=== PATIENT | male | born 1945 | race Caucasian/White ===

== ENCOUNTER 2016-11-10 12:01 | Inpatient (IN) | payer MEDICARE, OTHER ==
[~2016-11-10] VITALS: Ht 188 cm; Wt 81.2 kg
[~2016-11-10 12:01] MED LIST: AMLO5TAB4 PO; ATOR40TA PO; CLOP75TA2 PO; FLUT16SP NS; GABA-534 PO; HYDR-548 PO; LACT10SO6 PO; LAMO25TA PO; LOPE2TAB25 PO; POLY17PO4 PO; PROC10TA PO; RANI150T8 PO; TAMS0.4C34 PO; TRAZ-147 PO; VALS80TA26 PO; VENL150T PO
--- NOTE | 2016-11-10 12:02 | NUR ---
[id number] FROM DR SOTO'S OFFICE: WITNESSED SYNCOPE. BS FIELD 117. PLACED ON MONITOR. VSS. PT HAS RFA #18 IV ACCESS LOAN COLLECTOR.
[2016-11-10] MEDS ORDERED: IV NS 0.9% 500 ML BAG IV ONE (12:30)
[2016-11-10 12:40] LABS: BASOPHILS % (AUTO) 0.6 % (0.0-2.0); EOSINOPHILS # (AUTO) 0.2 /CMM (0.0-0.7); EOSINOPHILS % (AUTO) 2.5 % (0.0-6.0); HEMATOCRIT 31 % (39-51); HEMOGLOBIN 10.3 g/dL (13.5-17.5); LYMPHOCYTES # (AUTO) 2.9 /CMM (0.8-4.8); LYMPHOCYTES % (AUTO) 34.9 % (20.0-44.0); MEAN CORPUSCULAR HEMOGLOBIN 27 PG (26.0-33.0); MEAN CORPUSCULAR HGB CONC 33 g/dl (31.0-36.0); MEAN CORPUSCULAR VOLUME 82 fL (80-96); MONOCYTES # (AUTO) 0.6 /CMM (0.1-1.30); MONOCYTES % (AUTO) 6.8 % (2.0-12.0); NEUTROPHILS # (AUTO) 4.6 /CMM (1.8-8.9); NEUTROPHILS % (AUTO) 55.2 % (43.0-81.0); PLATELET COUNT (AUTO) 297 /CMM (150-450); RDW COEFFICIENT OF VARIATION 17.1 (11.5-15.0); WHITE BLOOD COUNT (AUTO) 8.3 K/uL (4.3-11.0)
[2016-11-10 12:50] LABS: CALCIUM, SERUM 8.8 mg/dL (8.5-10.1); CARBON DIOXIDE 27 mmol/L (21-32); CHLORIDE 91 mmol/L (98-107); CREATININE 0.6 mg/dL (0.6-1.3); GLUCOSE 100 mg/dL (74-106); POTASSIUM 3.6 mmol/L (3.5-5.1); SODIUM SERUM 125 mmol/L (136-145); UREA NITROGEN, BLOOD 11 mg/dL (7-18)
[2016-11-10 12:54] LABS: INR 1.01 (0.87-1.13); PROTHROMBIN TIME 10.5 SECS (9.5-12.7)
[2016-11-10 12:59] LABS: TROPONIN I < 0.017 ng/mL (0.00-0.056)
[2016-11-10] MEDS ORDERED: IV NS 0.9% 500 ML IV ONE (13:06)
[2016-11-10] MEDS ORDERED: IV SET PRIMARY PUMP SET 1 EA INFUS.SET MC ONE ×2 (13:06→19:04)
[2016-11-10] MEDS ORDERED: ASPI81TA44 PO (13:12)
[2016-11-10] MEDS ORDERED: LACT10SO7 PO (13:12)
--- NOTE | 2016-11-10 13:19 | NUR ---
CALLED NURSING SUP. FOR TELE BED
--- NOTE | 2016-11-10 13:26 | NUR ---
EPIC PAGED, WOODS LABORER
--- NOTE | 2016-11-10 13:54 | NUR ---
DR CYR AT BEDSIDE
--- NOTE | 2016-11-10 14:08 | NUR ---
GAVE REPORT TO RYAN TELE [address] CYR ADMITTING, TRANSFER VIA ACLS PROTOCOL
[2016-11-10 14:30] VITALS: BP 140/87
--- NOTE | 2016-11-10 14:30 | NUR ---
RN NOTES ADMITTED A 71Y/O M FROM ER WITH DX OF SYNCOPE, TRANSPORTED VIA STRETCHER ACCOMPANIED BY RN AND TECH. PT IS AWAKE ALERT ORIENTED TO NAME AND PLACE. ABLE TO MAKE SIMPLE NEEDS KNOWN, ON RA SYED WELL. VS TAKEN AND RECORDED. TELEBOX ATTACHED, NSR. BODY CHECK DONE, NO MAJOR SKIN ISSUES NOTED. ORIENTED PT TO UNIT AND CALL LIGHT USE, SAFETY MAINTAINED, NEEDS ATTENDED. CALL LIGHT WITHIN REACH, WILL CONT TO MONITOR
[2016-11-10 16:00] VITALS: BP 139/87
[2016-11-10] MEDS ORDERED: ONDANSETRON HCL/PF 4 MG/2 ML VIAL IVP PRN (17:00)
[2016-11-10] MEDS ORDERED: ZOLPIDEM TARTRATE 5 MG TABLET PO PRN (17:00)
[2016-11-10] MEDS ORDERED: MAG HYDROX/AL HYDROX/SIMETH 30 ML UDC PO PRN (17:00)
[2016-11-10] MEDS ORDERED: MAGNESIUM HYDROXIDE 30 ML UDC PO PRN (17:00)
[2016-11-10] MEDS ORDERED: Z GUARD REMEDY 2 OZ OINT TP PRN (17:00)
[2016-11-10] MEDS ORDERED: HYDROCODONE/APAP 5/325MG 1 EACH TABLET PO PRN (17:00)
[2016-11-10] MEDS ORDERED: ACETAMINOPHEN 325 MG TABLET PO PRN (17:00)
[2016-11-10] MEDS: LamoTRIgine 25 MG TABLET PO SCH (17:36)
[2016-11-10] MEDS: GABAPENTIN 300 MG CAPSULE PO SCH (17:36)
[2016-11-10] MEDS: FLUTICASONE PROPIONATE 16 GM BOTTLE NS SCH (18:22)
[2016-11-10 20:00] VITALS: BP 100/57
--- NOTE | 2016-11-10 20:00 | NUR ---
EDUCATION OFFICER NOTE Pt. assessed at this time. No C/O pain or distress. Pt. oriented to room and nurse call estrella. VSS. Afebrile. Repositioned pt. to right lateral side lying for comfort with pillows. All needs attended to. Will continue to monitor.
[2016-11-10] MEDS: TRAZODONE 50 MG TABLET PO SCH (21:27)
[2016-11-10] MEDS: ATORVASTATIN 40 MG TABLET PO SCH (21:27)
[2016-11-10] MEDS: IV NS 0.9% 1,000 ML IV PRN (21:30)
--- NOTE | 2016-11-10 22:00 | NUR ---
Pt. on Tele- ST on the monitor. No SOB. Sat on room air is 95%. C/O bilateral leg pain of an 8/10 on the pain scale. [place] 5/325mg given per order. Will reassess in one hour per pain protocol. Pt. is on IVF's NS at 75ml/hr infusing well into the right AC 20g intact and patent. All due meds given. ALL needs attended to. Keep comfortable and safe. Bed alarm on at this time.
[2016-11-11] VITALS (7 sets, daily range): BP systolic 90–106; BP diastolic 50–57
--- NOTE | 2016-11-11 06:22 | NUR ---
chaperon Closing Note pt. remains in bed resting comfortably. No S/S of distress noted. VSS. No C/P pain. Tele monitor SR. All needs attended to. Will continue to monitor.
--- NOTE | 2016-11-11 07:00 | NUR ---
Pt. on Tele- ST on the monitor. No SOB. Sat on room air is 95%. NO C/O PAIN.Pt. is on IVF's NS at 75ml/hr infusing well into the right AC 20g intact and patent. All due meds given. ALL needs attended to. Keep comfortable and safe. Bed alarm on at this time.
[2016-11-11 07:15] LABS: BASOPHILS % (AUTO) 0.7 % (0.0-2.0); EOSINOPHILS # (AUTO) 0.2 /CMM (0.0-0.7); EOSINOPHILS % (AUTO) 2.9 % (0.0-6.0); HEMATOCRIT 29 % (39-51); HEMOGLOBIN 9.4 g/dL (13.5-17.5); LYMPHOCYTES # (AUTO) 2.5 /CMM (0.8-4.8); LYMPHOCYTES % (AUTO) 38.7 % (20.0-44.0); MEAN CORPUSCULAR HEMOGLOBIN 27 PG (26.0-33.0); MEAN CORPUSCULAR HGB CONC 32 g/dl (31.0-36.0); MEAN CORPUSCULAR VOLUME 82 fL (80-96); MONOCYTES # (AUTO) 0.6 /CMM (0.1-1.30); MONOCYTES % (AUTO) 9.5 % (2.0-12.0); NEUTROPHILS # (AUTO) 3.1 /CMM (1.8-8.9); NEUTROPHILS % (AUTO) 48.2 % (43.0-81.0); PLATELET COUNT (AUTO) 253 /CMM (150-450); RED BLOOD CELL COUNT(AUTO) 3.55 MIL/uL (4.5-6.0); WHITE BLOOD COUNT (AUTO) 6.4 K/uL (4.3-11.0)
[2016-11-11 07:40] LABS: CALCIUM, SERUM 8.5 mg/dL (8.5-10.1); CREATININE 0.6 mg/dL (0.6-1.3); MAGNESIUM 1.9 mg/dL (1.8-2.4); PHOSPHORUS 4.6 mg/dL (2.5-4.9)
[2016-11-11] MEDS: GABAPENTIN 300 MG CAPSULE PO SCH ×2 (09:13→17:10)
[2016-11-11] MEDS: CLOPIDOGREL BISULFATE 75 MG TABLET PO SCH (09:13)
[2016-11-11] MEDS: PANTOPRAZOLE 40 MG TABLET.DR PO SCH (09:13)
[2016-11-11] MEDS ORDERED: IV NS 0.9% 1,000 ML ONE (09:13)
[2016-11-11] MEDS: ASPIRIN EC 81 MG TABLET.DR PO SCH (09:13)
[2016-11-11] MEDS: TAMSULOSIN 0.4 MG CAP.SR.24H PO SCH (09:13)
[2016-11-11] MEDS: POLYETHYLENE GLYCOL 3350 17 GM POWD.PACK PO SCH (09:14)
[2016-11-11] MEDS: LamoTRIgine 25 MG TABLET PO SCH ×2 (09:17→17:10)
[2016-11-11] MEDS: IV NS 0.9% 1,000 ML IV PRN (09:20)
[2016-11-11] MEDS: FLUTICASONE PROPIONATE 16 GM BOTTLE NS SCH ×2 (09:20→17:12)
[2016-11-11] MEDS: VENLAFAXINE XR 150 MG CAP.SR.24H PO SCH (10:26)
--- NOTE | 2016-11-11 19:30 | NUR ---
REDUCTION FURNACE OPERATOR INITIAL NOTE PT RECEIVED IN BED RESTING. AWAKE AND ALERT X2-3 FORGETFUL AND ABLE TO MAKE SOME NEEDS KNOWN. ON ROOM AIR AND SATING WELL. IV SITE INTACT, PATENT, WITH FLUIDS RUNNING. ALL SAFETY MEASURES IN PLACE. CALL LIGHT WITHIN EASY REACH. WILL CONTINUE TO MONITOR.
[2016-11-11] MEDS: ATORVASTATIN 40 MG TABLET PO SCH (22:20)
[2016-11-11] MEDS: TRAZODONE 50 MG TABLET PO SCH (22:20)
[2016-11-12] VITALS: BP 118/75
[2016-11-12 04:00] VITALS: BP 114/68
[2016-11-12 04:56] VITALS: BP 114/68
[2016-11-12] MEDS: IV NS 0.9% 1,000 ML IV PRN ×2 (06:54→18:51)
[2016-11-12] MEDS: PANTOPRAZOLE 40 MG TABLET.DR PO SCH (06:57)
--- NOTE | 2016-11-12 07:12 | NUR ---
PHOTO SPECIALIST CLOSING NOTE PT REMAINED STABLE DURING SHIFT. NO ACUTE DISTRESS NOTED. CALL LIGHT WITHIN EASY REACH AT ALL TIMES. ALL NEEDS ATTENDED TO PROMPTLY. WILL ENDORSE TO NEXT SHIFT FOR BRENDA.
[2016-11-12 08:00] VITALS: BP 126/69
[2016-11-12] MEDS: ASPIRIN EC 81 MG TABLET.DR PO SCH (08:55)
[2016-11-12] MEDS: FLUTICASONE PROPIONATE 16 GM BOTTLE NS SCH ×2 (08:55→17:41)
[2016-11-12] MEDS: TAMSULOSIN 0.4 MG CAP.SR.24H PO SCH (08:56)
[2016-11-12] MEDS: LamoTRIgine 25 MG TABLET PO SCH ×2 (08:56→17:41)
[2016-11-12] MEDS: CLOPIDOGREL BISULFATE 75 MG TABLET PO SCH (08:56)
[2016-11-12] MEDS: VENLAFAXINE XR 150 MG CAP.SR.24H PO SCH (08:56)
[2016-11-12] MEDS: POLYETHYLENE GLYCOL 3350 17 GM POWD.PACK PO SCH (08:56)
[2016-11-12] MEDS: GABAPENTIN 300 MG CAPSULE PO SCH ×2 (08:56→17:41)
[2016-11-12] MEDS: MUPIROCIN OINT 2% 22 GM TUBE SCH ×2 (12:33→22:13)
[2016-11-12 15:41] LABS: CREATININE 0.6 mg/dL (0.6-1.3); POTASSIUM 3.8 mmol/L (3.5-5.1)
[2016-11-12 16:00] VITALS: BP 109/71
[2016-11-12] MEDS ORDERED: IV SET PRIMARY PUMP SET 1 EA INFUS.SET MC ONE (18:41)
[2016-11-12 20:00] VITALS: BP 105/63
[2016-11-12] MEDS: TRAZODONE 50 MG TABLET PO SCH (21:42)
[2016-11-12] MEDS: ATORVASTATIN 40 MG TABLET PO SCH (21:42)
--- NOTE | 2016-11-12 22:00 | NUR ---
RN NOTES: SPOKE TO ABIMAEL THOMAS ON THE PHONE RE PT; WITH ORDERS FOR DISCHARGE FOR PATIENT . PER ABIMAEL THOMAS PATIENT OK TO BE DISCHARGED IF FACILITY ACCEPTS HIM IF NOT TONIGHT TOMORROW IN AM. CALLED SNF: [facility] AND SPOKE TO DIRECTOR OF DEMENTIA OPERATIONS MILTON, PER HER PATIENT STILL HAS A BED ON HOLD FOR HIM AND WILL BE ACCEPTED BACK. PATIENT ASLEEP COMFORTABLY ON BED AT THIS TIME. TO SEND PATIENT BACK TO SNF IN AM.
[2016-11-13] VITALS: BP 98/60
[2016-11-13 04:00] VITALS: BP 98/68
--- NOTE | 2016-11-13 05:00 | NUR ---
RN NOTES GAVE DISCHARGE INSTRUCTIONS TO THE PT, VERBALIZED UNDERSTANDING. LEFT MESSAGE TO FAMILY MEMBER AND FACILITY, AWAITING FOR CALL BACK
[2016-11-13 06:47] LABS: BILIRUBIN,TOTAL 0.2 mg/dL (0.2-1.0); CALCIUM, SERUM 8.1 mg/dL (8.5-10.1); CREATININE 0.7 mg/dL (0.6-1.3); MAGNESIUM 1.8 mg/dL (1.8-2.4); PHOSPHORUS 4.4 mg/dL (2.5-4.9)
[2016-11-13 06:51] LABS: BASOPHILS # (AUTO) 0.1 /CMM (0.0-0.2); BASOPHILS % (AUTO) 0.9 % (0.0-2.0); EOSINOPHILS # (AUTO) 0.2 /CMM (0.0-0.7); EOSINOPHILS % (AUTO) 2.7 % (0.0-6.0); HEMATOCRIT 28 % (39-51); HEMOGLOBIN 9.2 g/dL (13.5-17.5); LYMPHOCYTES # (AUTO) 2.5 /CMM (0.8-4.8); LYMPHOCYTES % (AUTO) 39.8 % (20.0-44.0); MEAN CORPUSCULAR HEMOGLOBIN 27 PG (26.0-33.0); MEAN CORPUSCULAR HGB CONC 33 g/dl (31.0-36.0); MEAN CORPUSCULAR VOLUME 83 fL (80-96); MONOCYTES # (AUTO) 0.4 /CMM (0.1-1.30); MONOCYTES % (AUTO) 7.2 % (2.0-12.0); NEUTROPHILS # (AUTO) 3.1 /CMM (1.8-8.9); NEUTROPHILS % (AUTO) 49.4 % (43.0-81.0); PLATELET COUNT (AUTO) 246 /CMM (150-450); RDW COEFFICIENT OF VARIATION 17.9 (11.5-15.0); RED BLOOD CELL COUNT(AUTO) 3.42 MIL/uL (4.5-6.0); WHITE BLOOD COUNT (AUTO) 6.2 K/uL (4.3-11.0)
--- NOTE | 2016-11-13 07:00 | NUR ---
RN NOTES RECEIVED PT ON BED , AWAKE AND ALERT X2-3 , RESPIRATION EVEN AND UNLABORED, ON RA , NO SOB NOTED, R AC IV SITE PATENT, WITH NS RUNNING AT 75CC/HR , SR UP x3, CALL LIGHT WITHIN EASY REACH . AWAITING FOR AMBULANCE TO GO TO SNF , WILL CONTINUE TO MONITOR PT CLOSELY AND NOTIFY MD FOR ANY SIGNIFICANT CHANGES
--- NOTE | 2016-11-13 07:15 | NUR ---
RN NOTE CALLED [facility], SPOKE WITH TRAFFIC SURVEY TECHNICIAN/PROCESS CONSULTANT DELL, GAVE REPORT RE PT GOING BACK TO FACILITY VIA AMBULANCE
[2016-11-13 08:00] VITALS: BP 125/68
--- NOTE | 2016-11-13 09:30 | NUR ---
RN NOTES R WRIST AND R AC IV SITES D/WANDA, REPORT GIVEN TO EMT PERDACIA , PT SENA .
--- NOTE | 2016-11-13 09:43 | NUR ---
RN NOTES PT LEFT THE FLOOR TO BOARDING CARE VIA AMBIANCE IN STABLE CONDITION.
== END 2016-11-13 09:29 | DRG 312 ==
LOC: ER 12:02 → TELE1 14:18 → MEDSG1 11-13 04:18
PROVIDERS: ADMIT Internal Medicine; ATTEND Internal Medicine
DX: R55 Syncope and collapse (principal); I69.859 Hemiplegia and hemiparesis following other cerebrovascular disease affecting unspecified side; E87.1 Hypo-osmolality and hyponatremia; E87.79 Other fluid overload; E78.5 Hyperlipidemia, unspecified; K21.9 Gastro-esophageal reflux disease without esophagitis; N40.0 Benign prostatic hyperplasia without lower urinary tract symptoms; Z98.2 Presence of cerebrospinal fluid drainage device; F32.9 Major depressive disorder, single episode, unspecified; I25.10 Atherosclerotic heart disease of native coronary artery without angina pectoris; Z85.841 Personal history of malignant neoplasm of brain; I10 Essential (primary) hypertension
CPT/HCPCS: 36415; 70450-TC; 71010-TC; 80048-TC; 80053-TC; 80061-TC; 82962-TC; 83735-TC; 83935-TC; 84100-TC; 84484-TC; 85025-TC; 85730-TC; 87040-TC; 87081-TC; 93307-TC; 97001-TC; A4606; J7030; J7040; Z7610

== ENCOUNTER 2017-04-22 19:52 | Inpatient (IN) | payer MEDICARE, OTHER ==
[~2017-04-22] VITALS: Ht 188 cm; Wt 73.2 kg
[~2017-04-22 19:52] MED LIST changes: +ASPI81TA44 PO; -LACT10SO6 PO; +LACT10SO7 PO
--- NOTE | 2017-04-22 20:10 | NUR ---
TO BED 6 A 71 YO MALE BB CAREGIVER, PT C/O ABD PAIN AND CONSTIPATION. PER PATIENT, HE DOES NOT REMEMBER WHEN WAS HIS LAST BOWEL MOVEMENT. NAD NOTED, NONDIAPHORETIC, GOWNED. COMFORT MEASURES RENDERED. PLACED ON MONITOR AND CONT POX.
--- NOTE | 2017-04-22 20:31 | NUR ---
Dr Kinney at bedside to eval.
[2017-04-22] MEDS ORDERED: ONDANSETRON HCL/PF 4 MG/2 ML VIAL ONE (20:59)
[2017-04-22] MEDS ORDERED: IV NS 0.9% 1,000 ML BAG IV ONE (21:00)
[2017-04-22] MEDS ORDERED: ONDANSETRON HCL/PF 4 MG/2 ML VIAL IVP ONE (21:00)
[2017-04-22] MEDS ORDERED: MORPHINE SULFATE INJ 2 MG/ML DISP.SYRIN IV ONE (21:00)
[2017-04-22] MEDS ORDERED: MORPHINE SULFATE INJ 10 MG/ML DISP.SYRIN ONE (21:00)
--- NOTE | 2017-04-22 21:00 | NUR ---
started a saline lock on the lfa g20.
[2017-04-22 21:05] LABS: BASOPHILS # (AUTO) 0.1 /CMM (0.0-0.2); BASOPHILS % (AUTO) 0.4 % (0.0-2.0); EOSINOPHILS # (AUTO) 0.1 /CMM (0.0-0.7); EOSINOPHILS % (AUTO) 0.7 % (0.0-6.0); HEMATOCRIT 33 % (39-51); HEMOGLOBIN 10.6 g/dL (13.5-17.5); LYMPHOCYTES # (AUTO) 1.8 /CMM (0.8-4.8); LYMPHOCYTES % (AUTO) 12.5 % (20.0-44.0); MEAN CORPUSCULAR HEMOGLOBIN 28 PG (26.0-33.0); MEAN CORPUSCULAR HGB CONC 33 g/dl (31.0-36.0); MEAN CORPUSCULAR VOLUME 84 fL (80-96); MONOCYTES # (AUTO) 0.4 /CMM (0.1-1.30); MONOCYTES % (AUTO) 2.7 % (2.0-12.0); NEUTROPHILS # (AUTO) 11.7 /CMM (1.8-8.9); NEUTROPHILS % (AUTO) 83.7 % (43.0-81.0); PLATELET COUNT (AUTO) 298 /CMM (150-450); RDW COEFFICIENT OF VARIATION 16.5 (11.5-15.0); RED BLOOD CELL COUNT(AUTO) 3.87 MIL/uL (4.5-6.0); WHITE BLOOD COUNT (AUTO) 14.1 K/uL (4.3-11.0)
--- NOTE | 2017-04-22 21:08 | NUR ---
medicated patient as ordered by Dr Kinney.
[2017-04-22 21:16] LABS: CALCIUM, SERUM 8.8 mg/dL (8.5-10.1); CARBON DIOXIDE 24 mmol/L (21-32); CHLORIDE 100 mmol/L (98-107); CREATININE 0.7 mg/dL (0.6-1.3); GLUCOSE 152 mg/dL (74-106); SODIUM SERUM 133 mmol/L (136-145); UREA NITROGEN, BLOOD 14 mg/dL (7-18)
[2017-04-22 21:22] LABS: ALANINE AMINOTRANSFERASE 18 U/L (12-78); ALBUMIN 3.4 g/dL (3.4-5.0); ALKALINE PHOSPHATASE 107 U/L (46-116); ASPARTATE AMINOTRANSFERASE 16 U/L (15-37); BILIRUBIN,TOTAL 0.2 mg/dL (0.2-1.0); LIPASE 91 U/L (73-393)
[2017-04-22] MEDS ORDERED: IV NS 0.9% 250 ML IV ONE (21:43)
[2017-04-22] MEDS ORDERED: IOHEXOL-300 100 ML VIAL IV ONE (21:43)
--- NOTE | 2017-04-22 22:45 | NUR ---
Dr Kinney at bedside for digital disimpaction.
--- NOTE | 2017-04-22 22:58 | NUR ---
328-1 [facility] BED
[2017-04-22] MEDS ORDERED: PANTOPRAZOLE 40 MG VIAL ONE (23:00)
[2017-04-22] MEDS ORDERED: PANTOPRAZOLE 40 MG VIAL IV ONE (23:00)
--- NOTE | 2017-04-22 23:10 | NUR ---
Report given to Matias GALVEZ for rufus.
[2017-04-22 23:23] LABS: INR 0.96 (0.87-1.13)
[2017-04-23] VITALS (8 sets, daily range): BP systolic 117–138; BP diastolic 72–76
[2017-04-23] MEDS ORDERED: MAGNESIUM HYDROXIDE 30 ML UDC PO PRN
[2017-04-23] MEDS ORDERED: Z GUARD REMEDY 2 OZ OINT TP PRN
[2017-04-23] MEDS ORDERED: PROCHLORPERAZINE MALEATE 10 MG TABLET PO PRN
[2017-04-23] MEDS ORDERED: ZOLPIDEM TARTRATE 5 MG TABLET PO PRN
[2017-04-23] MEDS ORDERED: MAG HYDROX/AL HYDROX/SIMETH 30 ML UDC PO PRN
[2017-04-23] MEDS ORDERED: ONDANSETRON HCL/PF 4 MG/2 ML VIAL IVP PRN
--- NOTE | 2017-04-23 00:14 | NUR ---
patient transferred to tele floor 317-2 via als protocol, no incident noted.
--- NOTE | 2017-04-23 00:30 | NUR ---
Received pt from ED alert,oriented X 3. on room air, saturating well. connected to the workers' compensation claims examiner, NSR-ST. pt denies chest pain or distress.VSS. pt states that he had a history of suicidal attempts but denies any suicidal ideation at this time. charge nurse is aware. will continue to monitor and endorse it to AM shift nurse.
[2017-04-23] MEDS ORDERED: HYDROCODONE/APAP 10/325MG 1 EA TABLET ONE (04:28)
[2017-04-23] MEDS: HYDROCODONE/APAP 10/325MG 1 EA TABLET PO PRN (04:31)
--- NOTE | 2017-04-23 06:47 | NUR ---
END OF SHIFT SUMMERY: Pt is A&O X 4. on room air,saturating well. VSS. connected to the monitor worker , NSR-ST . complained of rectal pain, norco was given with relief. No episodes of N/V noticed throughout shift. Fall precautions are implemented. Pt is repositioned Q2h and as needed. Had two episodes of BM during the shift. MRSA swab is obtained and sent to lab. POC: monitor H/H, lab studies. No distress noted,no questions or concerns at this time. will endorse patient and POC to the next nurse to continue the care.
[2017-04-23 07:13] LABS: BASOPHILS % (AUTO) 0.2 % (0.0-2.0); EOSINOPHILS # (AUTO) 0.2 /CMM (0.0-0.7); EOSINOPHILS % (AUTO) 1.2 % (0.0-6.0); HEMATOCRIT 29 % (39-51); HEMOGLOBIN 9.4 g/dL (13.5-17.5); LYMPHOCYTES # (AUTO) 2.4 /CMM (0.8-4.8); LYMPHOCYTES % (AUTO) 18.9 % (20.0-44.0); MEAN CORPUSCULAR HEMOGLOBIN 28 PG (26.0-33.0); MEAN CORPUSCULAR HGB CONC 33 g/dl (31.0-36.0); MEAN CORPUSCULAR VOLUME 84 fL (80-96); MONOCYTES # (AUTO) 0.8 /CMM (0.1-1.30); NEUTROPHILS # (AUTO) 9.5 /CMM (1.8-8.9); NEUTROPHILS % (AUTO) 73.7 % (43.0-81.0); PLATELET COUNT (AUTO) 261 /CMM (150-450); RDW COEFFICIENT OF VARIATION 17.9 (11.5-15.0); RED BLOOD CELL COUNT(AUTO) 3.41 MIL/uL (4.5-6.0); WHITE BLOOD COUNT (AUTO) 12.9 K/uL (4.3-11.0)
[2017-04-23 07:35] LABS: CALCIUM, SERUM 8.5 mg/dL (8.5-10.1); CARBON DIOXIDE 24 mmol/L (21-32); CHLORIDE 102 mmol/L (98-107); CREATININE 0.5 mg/dL (0.6-1.3); GLUCOSE 85 mg/dL (74-106); MAGNESIUM 1.9 mg/dL (1.8-2.4); POTASSIUM 4.1 mmol/L (3.5-5.1); SODIUM SERUM 136 mmol/L (136-145); UREA NITROGEN, BLOOD 11 mg/dL (7-18)
[2017-04-23 07:36] LABS: CHOLESTEROL 104 mg/dL (<200); HDL CHOLESTEROL 63 mg/dL (40-60); LDL 34 mg/dL (0-99); TRIGLYCERIDES 63 mg/dL (30-150)
--- NOTE | 2017-04-23 08:00 | NUR ---
RN NOTES RECEIVED PT. PT IS STABLE AND RESTING IN BED. A/OX4. NO S/S OF DISTRESS OR SOB. PT HAS NO C/O PAIN AT THIS TIME. PT IS ON CONTACT ISOLATION FOR HX OF MRSA. PT HAS BEEN CONSTIPATED, NO BM FOR THE PAST 4 DAYS. IV ACCESS LOCATED ON LEFT FOREARM, 20G AND RIGHT AC 20G. SAFETY MEASURES IN PLACE, CALL LIGHT WITHIN REACH. WILL CONTINUE TO MONITOR.
[2017-04-23] MEDS ORDERED: ASPIRIN EC 81 MG TABLET.DR PO SCH (09:00)
[2017-04-23] MEDS: AMLODIPINE BESYLATE 5 MG TABLET PO SCH (09:00)
[2017-04-23] MEDS: VALSARTAN 80 MG TABLET PO SCH (09:00)
[2017-04-23] MEDS ORDERED: CLOPIDOGREL BISULFATE 75 MG TABLET PO SCH (09:00)
[2017-04-23] MEDS: FLUTICASONE PROPIONATE 16 GM BOTTLE NS SCH ×2 (09:14→18:01)
[2017-04-23] MEDS: GABAPENTIN 300 MG CAPSULE PO SCH ×2 (09:14→18:03)
[2017-04-23] MEDS: LamoTRIgine 25 MG TABLET PO SCH ×2 (09:15→18:03)
[2017-04-23] MEDS: TAMSULOSIN 0.4 MG CAP.SR.24H PO SCH (09:15)
[2017-04-23] MEDS: POLYETHYLENE GLYCOL 3350 17 GM POWD.PACK PO SCH (09:16)
[2017-04-23] MEDS ORDERED: LOPERAMIDE HCL (2 MG CAP) 2 MG CAPSULE PO PRN (11:00)
[2017-04-23] MEDS ORDERED: LACTULOSE 10 G/15 ML UDC (PYXIS) PO PRN (11:00)
[2017-04-23] MEDS ORDERED: PEG 3350/NA SULF,BICARB,CL/KCL 4,000 ML BOTTLE PO ONE (11:00)
[2017-04-23] MEDS: VENLAFAXINE XR 150 MG CAP.SR.24H PO SCH (12:14)
[2017-04-23 13:11] LABS: IRON, SERUM 37 ug/dl (50-175); TOTAL IRON BINDING CAPACITY 279 ug/dl (250-450)
[2017-04-23] MEDS: FAMOTIDINE (20 MG) 20 MG TABLET PO SCH (18:02)
--- NOTE | 2017-04-23 18:56 | NUR ---
RN CLOSING NOTES PT IS AWAKE AND RESTING IN BED. NO S/S OF DISTRESS OR SOB. NO C/O PAIN AT THIS TIME. PT HAS COMPLETED APPROXIMATELY 80% OF THE 4L ALEN. PT TELE WAS D/C. SAFETY MEASURES IN PLACE, CALL LIGHT WITHIN REACH. WILL ENDORSE TO COMPACTOR DRIVER FOR BRENDA.
--- NOTE | 2017-04-23 19:15 | NUR ---
RN OPEN NOTES RECEIVED PATIENT AWAKE IN BED. A/O X3. NO SIGNS OF DISTRESS OR DISCOMFORT. BREATHING EVEN AND UNLABORED. IV ACCESS IN LFA AND RAC, PATENT AND INTACT, NO SIGNS OF REDNESS OR INFILTRATION. BED IN LOW LOCKED POSITION WITH SIDE RAILS X2. CALL LIGHT WITHIN REACH. WILL CONTINUE TO MONITOR.
[2017-04-23] MEDS: ATORVASTATIN 40 MG TABLET PO SCH (21:49)
[2017-04-23] MEDS: TRAZODONE 50 MG TABLET PO SCH (21:49)
[2017-04-24] MEDS: FAMOTIDINE (20 MG) 20 MG TABLET PO SCH ×2 (07:30→16:12)
--- NOTE | 2017-04-24 07:34 | NUR ---
RN CLOSING NOTES PATIENT AWAKE IN BED. A/O X3. NO SIGNS OF DISTRESS OR DISCOMFORT. BREATHING EVEN AND UNLABORED. IV ACCESS IN LFA AND RAC, PATENT AND INTACT, NO SIGNS OF REDNESS OR INFILTRATION. ALL NEEDS MET. NO SIGNIFICANT CHANGES THROUGH THE NIGHT. REPOSITIONED PATIENT PRN. BED IN LOW LOCKED POSITION WITH SIDE RAILS X2. CALL LIGHT WITHIN REACH. ENDORSED TO AM SHIFT FOR BRENDA.
--- NOTE | 2017-04-24 07:49 | NUR ---
RN NOTES RECEIVED PT. PT IN BED RESTING, A/OX3. NO S/S OF DISTRESS OR SOB. PT HAS C/O MILD PAIN 3/10 AT THIS TIME. WILL ADDRESS WITH NON-PHARMACOLOGICAL INTERVENTIONS. PER REPORT, PT HAD 2 BOWEL MOVEMENTS LAST NIGHT. OB STOOL OCCULT TO BE COLLECTED TODAY. SAFETY MEASURES IN PLACE, CALL LIGHT WITHIN REACH, WILL CONTINUE TO MONITOR.
[2017-04-24 08:00] VITALS: BP 116/66
[2017-04-24] MEDS: VALSARTAN 80 MG TABLET PO SCH (09:00)
[2017-04-24] MEDS: AMLODIPINE BESYLATE 5 MG TABLET PO SCH (09:00)
[2017-04-24] MEDS: HYDROCODONE/APAP 10/325MG 1 EA TABLET PO PRN (09:01)
[2017-04-24] MEDS: VENLAFAXINE XR 150 MG CAP.SR.24H PO SCH (09:01)
[2017-04-24] MEDS: POLYETHYLENE GLYCOL 3350 17 GM POWD.PACK PO SCH (09:02)
[2017-04-24] MEDS: TAMSULOSIN 0.4 MG CAP.SR.24H PO SCH (09:02)
[2017-04-24] MEDS: GABAPENTIN 300 MG CAPSULE PO SCH ×2 (09:02→16:12)
[2017-04-24] MEDS: LamoTRIgine 25 MG TABLET PO SCH ×2 (09:02→16:12)
[2017-04-24] MEDS: FLUTICASONE PROPIONATE 16 GM BOTTLE NS SCH ×2 (09:10→16:41)
[2017-04-24 16:00] VITALS: BP 89/57
--- NOTE | 2017-04-24 19:20 | NUR ---
RN OPEN NOTES RECEIVED PATIENT RESTING IN BED. A/O X3. NO SIGNS OF DISTRESS OR DISCOMFORT. BREATHING EVEN AND UNLABORED. IV ACCESS IN LFA AND RAC, PATENT AND INTACT, NO SIGNS OF REDNESS OR INFILTRATION. BED IN LOW LOCKED POSITION WITH SIDE RAILS X2. CALL LIGHT WITHIN REACH. WILL CONTINUE TO MONITOR.
--- NOTE | 2017-04-24 19:32 | NUR ---
RN NOTES PT IS IN BED RESTING. NO S/S OF DISTRESS OR SOB. PT HAS HAD 1X BOWEL MOVEMENT TODAY, LIQUID AND DARK BROWN. DR. JOHNSON PERFORMED MANUAL DISIMPACTION ON PT AT 1900. ALL PT NEEDS ANTICIPATED AND MET. SAFETY MEASURES IN PLACE, CALL LIGHT IN REACH. WILL ENDORSE TO VENUE ATTENDANT FOR BRENDA.
[2017-04-24 20:00] VITALS: BP 96/57
[2017-04-24] MEDS: ATORVASTATIN 40 MG TABLET PO SCH (21:35)
[2017-04-24] MEDS: TRAZODONE 50 MG TABLET PO SCH (21:35)
[2017-04-24] MEDS: ACETAMINOPHEN 325 MG TABLET PO PRN (23:56)
--- NOTE | 2017-04-25 06:58 | NUR ---
RN CLOSING NOTES PATIENT ARESTING IN BED. A/O X3. NO SIGNS OF DISTRESS OR DISCOMFORT. BREATHING EVEN AND UNLABORED. IV ACCESS IN LFA AND RAC, PATENT AND INTACT, NO SIGNS OF REDNESS OR INFILTRATION. ALL NEEDS MET. NO SIGNIFICANT CHANGES THROUGH THE NIGHT. REPOSITIONED PATIENT Q2H AND PRN. BED IN LOW LOCKED POSITION WITH SIDE RAILS X2. CALL LIGHT WITHIN REACH. WILL ENDORSE TO AM SHIFT FOR BRENDA.
[2017-04-25 07:30] LABS: BASOPHILS # (AUTO) 0.1 /CMM (0.0-0.2); BASOPHILS % (AUTO) 0.8 % (0.0-2.0); EOSINOPHILS # (AUTO) 0.3 /CMM (0.0-0.7); EOSINOPHILS % (AUTO) 2.7 % (0.0-6.0); HEMATOCRIT 31 % (39-51); HEMOGLOBIN 10.1 g/dL (13.5-17.5); LYMPHOCYTES # (AUTO) 1.8 /CMM (0.8-4.8); LYMPHOCYTES % (AUTO) 16.5 % (20.0-44.0); MEAN CORPUSCULAR HEMOGLOBIN 28 PG (26.0-33.0); MEAN CORPUSCULAR HGB CONC 33 g/dl (31.0-36.0); MEAN CORPUSCULAR VOLUME 86 fL (80-96); MONOCYTES # (AUTO) 0.8 /CMM (0.1-1.30); MONOCYTES % (AUTO) 7.3 % (2.0-12.0); NEUTROPHILS # (AUTO) 8.1 /CMM (1.8-8.9); NEUTROPHILS % (AUTO) 72.7 % (43.0-81.0); PLATELET COUNT (AUTO) 206 /CMM (150-450); RDW COEFFICIENT OF VARIATION 17.7 (11.5-15.0); WHITE BLOOD COUNT (AUTO) 11.2 K/uL (4.3-11.0)
[2017-04-25 07:47] LABS: CALCIUM, SERUM 8.6 mg/dL (8.5-10.1); CARBON DIOXIDE 27 mmol/L (21-32); CHLORIDE 102 mmol/L (98-107); CREATININE 0.6 mg/dL (0.6-1.3); GLUCOSE 75 mg/dL (74-106); POTASSIUM 3.6 mmol/L (3.5-5.1); SODIUM SERUM 139 mmol/L (136-145); UREA NITROGEN, BLOOD 12 mg/dL (7-18)
[2017-04-25 08:00] VITALS: BP 141/72
--- NOTE | 2017-04-25 08:30 | NUR ---
MS RN RECEIVED PATIENT ON BED, AWAKE,ALERT,ORIENTED X3,NOT IN ANY FORM OF DISTRESS, RESPIRATION EVEN AND UNLABORED,NO SOB NOTED. LUNGS ARE DIMINISHED,ABDOMEN SOFT,POSITIVE BOWEL SOUNDS, DENIES PAIN AT THIS TIME.
--- NOTE | 2017-04-25 09:45 | NUR ---
MS RN WAS SEEN BY KEREN DE LA PAZ, AWAITING FOR ORDERS.
[2017-04-25] MEDS: VENLAFAXINE XR 150 MG CAP.SR.24H PO SCH (10:13)
[2017-04-25] MEDS: TAMSULOSIN 0.4 MG CAP.SR.24H PO SCH (10:13)
[2017-04-25] MEDS: GABAPENTIN 300 MG CAPSULE PO SCH ×2 (10:14→18:10)
[2017-04-25] MEDS: POLYETHYLENE GLYCOL 3350 17 GM POWD.PACK PO SCH (10:14)
[2017-04-25] MEDS: LamoTRIgine 25 MG TABLET PO SCH ×2 (10:14→18:10)
[2017-04-25] MEDS: FAMOTIDINE (20 MG) 20 MG TABLET PO SCH ×2 (10:14→18:09)
[2017-04-25] MEDS: HYDROCODONE/APAP 10/325MG 1 EA TABLET PO PRN (10:16)
[2017-04-25] MEDS: VALSARTAN 80 MG TABLET PO SCH (10:17)
[2017-04-25] MEDS: AMLODIPINE BESYLATE 5 MG TABLET PO SCH (10:17)
[2017-04-25] MEDS: FLUTICASONE PROPIONATE 16 GM BOTTLE NS SCH ×2 (10:33→18:09)
--- NOTE | 2017-04-25 12:00 | NUR ---
ms rn on bed, visitor at bedside, no distress noted.
--- NOTE | 2017-04-25 15:00 | NUR ---
ms rn was seen by dr. phillips w/ adolfo to manually disimpaction to be done today.
[2017-04-25 16:00] VITALS: BP 81/49
--- NOTE | 2017-04-25 16:00 | NUR ---
ms rn disimpaction done no output noted.
--- NOTE | 2017-04-25 18:27 | NUR ---
ms rn on bed, no distress noted,all needs attended.
--- NOTE | 2017-04-25 19:40 | NUR ---
MS RN NOTE RECEIVED PATIENT FROM DAY SHIFT, PATIENT IS ALERT AND ORIENTEDX3, LOOKS WEAK, O2 SAT 88% RA, CONNECTED TO O2 SAT 2l/MIN, WENT UP TO 94%. ON BED REST, NO COMPLAINS OF PAIN AT THIS TIME. TWO IV SITES ARE PATENT AND INTACT. SRX2, BED IN LOW POSITION, CALL LIGHT WITHIN REACH, WILL CONTINUE TO MONITOR PATIENT.
[2017-04-25 20:00] VITALS: BP 92/56
[2017-04-25 20:51] VITALS: BP 102/63
[2017-04-25] MEDS: ATORVASTATIN 40 MG TABLET PO SCH (21:26)
[2017-04-25] MEDS: TRAZODONE 50 MG TABLET PO SCH (21:26)
[2017-04-26 06:30] LABS: BASOPHILS % (AUTO) 0.3 % (0.0-2.0); EOSINOPHILS # (AUTO) 0.2 /CMM (0.0-0.7); EOSINOPHILS % (AUTO) 1.5 % (0.0-6.0); HEMATOCRIT 26 % (39-51); HEMOGLOBIN 8.5 g/dL (13.5-17.5); LYMPHOCYTES # (AUTO) 1.5 /CMM (0.8-4.8); LYMPHOCYTES % (AUTO) 10.7 % (20.0-44.0); MEAN CORPUSCULAR HEMOGLOBIN 28 PG (26.0-33.0); MEAN CORPUSCULAR HGB CONC 33 g/dl (31.0-36.0); MEAN CORPUSCULAR VOLUME 85 fL (80-96); MONOCYTES # (AUTO) 0.5 /CMM (0.1-1.30); MONOCYTES % (AUTO) 3.9 % (2.0-12.0); NEUTROPHILS # (AUTO) 11.8 /CMM (1.8-8.9); NEUTROPHILS % (AUTO) 83.6 % (43.0-81.0); PLATELET COUNT (AUTO) 219 /CMM (150-450); RDW COEFFICIENT OF VARIATION 17.1 (11.5-15.0); RED BLOOD CELL COUNT(AUTO) 3.05 MIL/uL (4.5-6.0); WHITE BLOOD COUNT (AUTO) 14.1 K/uL (4.3-11.0)
[2017-04-26 06:41] LABS: CALCIUM, SERUM 7.8 mg/dL (8.5-10.1); CARBON DIOXIDE 27 mmol/L (21-32); CHLORIDE 105 mmol/L (98-107); CREATININE 0.6 mg/dL (0.6-1.3); GLUCOSE 103 mg/dL (74-106); POTASSIUM 3.4 mmol/L (3.5-5.1); SODIUM SERUM 140 mmol/L (136-145); UREA NITROGEN, BLOOD 10 mg/dL (7-18)
--- NOTE | 2017-04-26 06:49 | NUR ---
MS RN NOTE PATIENT IS SLEEPING IN BED COMFORTABLY, NO S/S OF RESPIRATORY DISTRESS AND NO FACIAL GRIMACE NOTED. MORNING CARE RENDERED, ALL DUE MEDS GIVEN. TWO IV SITES ARE PATENT AND INTACT. WILL ENDORSE TO DAY SHIFT NURSE FOR BRENDA.
--- NOTE | 2017-04-26 07:15 | NUR ---
RN NOTES PT IS IN BED, RESTING COMFORTABLY. PT ON O2 2L, RESPIRATIONS ARE EVEN AND UNLABORED. IV ON LFA AND RAC INTACT AND PATENT, SL. SAFETY MEASURES ARE IN PLACE, CALL LIGHT IS IN REACH. WILL CONTINUE TO MONITOR.
[2017-04-26 08:00] VITALS: BP 93/57
[2017-04-26] MEDS: AMLODIPINE BESYLATE 5 MG TABLET PO SCH (08:06)
[2017-04-26] MEDS: VALSARTAN 80 MG TABLET PO SCH (08:07)
[2017-04-26] MEDS: TAMSULOSIN 0.4 MG CAP.SR.24H PO SCH (08:12)
[2017-04-26] MEDS: VENLAFAXINE XR 150 MG CAP.SR.24H PO SCH (08:12)
[2017-04-26] MEDS: LamoTRIgine 25 MG TABLET PO SCH ×2 (08:12→16:04)
[2017-04-26] MEDS: FAMOTIDINE (20 MG) 20 MG TABLET PO SCH ×2 (08:12→16:04)
[2017-04-26] MEDS: POLYETHYLENE GLYCOL 3350 17 GM POWD.PACK PO SCH (08:12)
[2017-04-26] MEDS: GABAPENTIN 300 MG CAPSULE PO SCH ×2 (08:12→16:04)
[2017-04-26] MEDS: FLUTICASONE PROPIONATE 16 GM BOTTLE NS SCH ×2 (08:59→16:07)
[2017-04-26] MEDS ORDERED: IV NS 0.9% 500 ML IV ONE (09:30)
[2017-04-26] MEDS ORDERED: POTASSIUM CHLORIDE 20 MEQ POWDER PACKET PO SCH (10:00)
--- NOTE | 2017-04-26 10:00 | NUR ---
PT BP LOW, 93/57, ANTIHYPERTENSIVES HELD FOR THE AM. LACTIC ACID CAME BACK, 2.3. KEREN DE LA PAZ NOTIFIED, ORDERED 500ML NS BOLUS.
[2017-04-26] MEDS ORDERED: NA PHOS,M-B/NA PHOS,DI-BA 1 EA ENEMA RC PRN (15:00)
[2017-04-26 16:00] VITALS: BP 97/62
[2017-04-26] MEDS ORDERED: MINERAL OIL 133 ML (PYXIS) 1 EA ENEMA RC ONE (16:30)
[2017-04-26 16:55] LABS: APPEARANCE,URINE CLEAR (CLEAR); BILIRUBIN,URINE NEGATIVE (NEGATIVE); BLOOD, URINE NEGATIVE Ery/uL (NEGATIVE); COLOR,URINE YELLOW (YELLOW); KETONES,URINE NEGATIVE (NEGATIVE); LEUKOCYTE ESTERASE ,URINE NEGATIVE (NEGATIVE); NITRITE, URINE NEGATIVE (NEGATIVE); PROTEIN,URINE NEGATIVE (NEGATIVE); UGLUCOSE NEGATIVE (NEGATIVE)
[2017-04-26] MEDS ORDERED: PEG 3350/NA SULF,BICARB,CL/KCL 4,000 ML BOTTLE PO ONE (17:30)
[2017-04-26 17:49] LABS: BACTERIA,URINE Few /HPF (None Seen); RBC,URINE NONE SEEN /HPF (0-2); SQUAMOUS EPITHELIAL CELL,UR Rare /HPF (None Seen); WBC,URINE 0-2 /HPF (0-3)
--- NOTE | 2017-04-26 18:18 | NUR ---
RN NOTES PT IS SITTING UP IN BED, RESTING COMFORTABLY. PT ON RA, RESPIRATIONS ARE EVEN AND UNLABORED. IV ON LFA AND RAC INTACT AND PATENT, SL. OIL ENEMA WAS GIVEN AND GOLYTLY ORDERED FOR POSSIBLE ENDOSCOPY/COLONOSCOPY TOMORROW. PT IS AWARE AND CONSENT FORMS ARE SIGNED. ALL MEDS WERE GIVEN ORDERED. PT NEEDS WERE MET. SAFETY MEASURES ARE IN PLACE, CALL LIGHT IS IN REACH. WILL ENDORSE TO JOURNEYMAN LINEMAN RN FOR CONTINUITY OF CARE.
--- NOTE | 2017-04-26 19:30 | NUR ---
RN NOTES RECEIVED PATIENT IN BED AWAKE, AO X 3, ABLE TO MAKE NEEDS KNOWN. NO ACUTE DISTRESS NOTED. DENIES ANY PAIN AT THIS TIME. IV SITE PATENT, INTACT; FLUSHED. SAFETY REMINDERS GIVEN. ON LOW BED WITH BILATERAL UPPER SIDE RAILS UP. CALL LIGHT WITHIN EASY REACH. WILL CONTINUE TO MONITOR.
[2017-04-26 20:00] VITALS: BP 120/70
--- NOTE | 2017-04-26 21:48 | NUR ---
RN NOTES DR. JOHNSON MADE AWARE THAT PATIENT HAS BARELY DRUNK 1 CUP OF GOLYTELY DESPITE ENCOURAGEMENT AND ASSISTANCE FROM NURSE. PER DR. JOHNSON, CONTINUE TO ENCOURAGE AND ASSIST PATIENT WITH GOLYTELY. IF STOOL IS NOT CLEAR IN AM, MD WILL ONLY DO EGD. KEEP PATIENT NPO PAST MIDNIGHT.
[2017-04-26] MEDS: ATORVASTATIN 40 MG TABLET PO SCH (22:23)
[2017-04-26] MEDS: TRAZODONE 50 MG TABLET PO SCH (22:23)
--- NOTE | 2017-04-27 06:34 | NUR ---
RN NOTES PATIENT ASLEEP, EASILY AROUSABLE. RESPIRATIONS EVEN. NO SIGNS OF PAIN NOTED. PATIENT DID NOT FINISH GOLYTELY. BM NOT CLEAR. DUE MEDS GIVEN WITH NO ASE NOTED. NEEDS ATTENDED. REPOSITIONED Q 2 HOURS. SAFETY PRECAUTIONS AND COMFORT MEASURES IN PLACE. WILL GIVE REPORT TO DAY SHIFT FOR CONTINUITY OF CARE.
--- NOTE | 2017-04-27 07:10 | NUR ---
RN NOTES PT IS IN BED, SLEEPING COMFORTABLY. PT ON 2L O2, RESPIRATIONS ARE EVEN AND UNLABORED. IV ON LFA AND RAC INTACT AND PATENT, SL. SAFETY MEASURES ARE IN PLACE, CALL LIGHT IS IN REACH. WILL CONTINUE TO MONITOR.
[2017-04-27] MEDS: FAMOTIDINE (20 MG) 20 MG TABLET PO SCH ×2 (07:30→16:05)
[2017-04-27 08:00] VITALS: BP 133/86
[2017-04-27] MEDS: VALSARTAN 80 MG TABLET PO SCH (08:05)
[2017-04-27] MEDS: VENLAFAXINE XR 150 MG CAP.SR.24H PO SCH (08:06)
[2017-04-27] MEDS: GABAPENTIN 300 MG CAPSULE PO SCH ×2 (08:06→16:05)
[2017-04-27] MEDS: LamoTRIgine 25 MG TABLET PO SCH ×2 (08:06→16:05)
[2017-04-27] MEDS: POLYETHYLENE GLYCOL 3350 17 GM POWD.PACK PO SCH (08:06)
[2017-04-27] MEDS: TAMSULOSIN 0.4 MG CAP.SR.24H PO SCH (08:06)
[2017-04-27] MEDS: AMLODIPINE BESYLATE 5 MG TABLET PO SCH (08:06)
[2017-04-27 08:24] LABS: CALCIUM, SERUM 8.5 mg/dL (8.5-10.1); CARBON DIOXIDE 28 mmol/L (21-32); CHLORIDE 108 mmol/L (98-107); CREATININE 0.5 mg/dL (0.6-1.3); GLUCOSE 87 mg/dL (74-106); POTASSIUM 4.5 mmol/L (3.5-5.1); SODIUM SERUM 144 mmol/L (136-145); UREA NITROGEN, BLOOD 6 mg/dL (7-18)
[2017-04-27] MEDS: FLUTICASONE PROPIONATE 16 GM BOTTLE NS SCH ×2 (08:27→16:05)
[2017-04-27 08:33] LABS: BASOPHILS % (AUTO) 0.3 % (0.0-2.0); EOSINOPHILS # (AUTO) 0.4 /CMM (0.0-0.7); HEMATOCRIT 29 % (39-51); HEMOGLOBIN 9.6 g/dL (13.5-17.5); LYMPHOCYTES % (AUTO) 20.6 % (20.0-44.0); MEAN CORPUSCULAR HEMOGLOBIN 28 PG (26.0-33.0); MEAN CORPUSCULAR HGB CONC 33 g/dl (31.0-36.0); MEAN CORPUSCULAR VOLUME 84 fL (80-96); MONOCYTES # (AUTO) 0.6 /CMM (0.1-1.30); MONOCYTES % (AUTO) 6.7 % (2.0-12.0); NEUTROPHILS # (AUTO) 6.6 /CMM (1.8-8.9); NEUTROPHILS % (AUTO) 68.4 % (43.0-81.0); PLATELET COUNT (AUTO) 253 /CMM (150-450); RDW COEFFICIENT OF VARIATION 16.8 (11.5-15.0); RED BLOOD CELL COUNT(AUTO) 3.44 MIL/uL (4.5-6.0); WHITE BLOOD COUNT (AUTO) 9.6 K/uL (4.3-11.0)
[2017-04-27] MEDS: IV LR 1000 ML 1,000 ML IV PRN (14:31)
[2017-04-27 16:00] VITALS: BP 155/84
--- NOTE | 2017-04-27 18:17 | NUR ---
RN NOTES PT IS RESTING IN BED COMFORTABLY. PT ON 2L O2 VIA NASAL CANNULA, RESPIRATIONS ARE EVEN AND UNLABORED. IV ON LFA AND RAC INTACT AND PATENT. LR RUNNING ON LFA @ 100ML/HR. ALL MEDS WERE GIVEN ORDERED. PT ABLE TO TOLERATE ADVANCING DIET. PT NEEDS WERE MET. SAFETY MEASURES ARE IN PLACE, CALL LIGHT IS IN REACH. WILL ENDORSE TO SALESPERSON JEWELRY RN FOR CONTINUITY OF CARE.
--- NOTE | 2017-04-27 19:26 | NUR ---
MS RN OPENING NOTES RECEIVED PATIENT RESTING IN BED IN SEMI HARRIS POSITION, NO SOB, NO ACUTE DISTRESS, DENIED ANY PAIN AT THIS TIME. ON O2 AT 2 LPM VIA NC PRN. A & O X 3. IV ACCESS TO LFA, INTACT PATENT. EGD & RECTAL EXAM WAS DONE TODAY PER AM RN. NO S/S OF ACTIVE BLEEDING NOTED. NO S/S OF INFECTION NOTED. ON FULL LIQUID DIET. ABLE TO VERBALIZE HIS NEEDS. BED IN LOW LOCKED POSITION. CALL LIGHT WITHIN REACH. WILL CONTINUE TO MONITOR CLOSELY.
[2017-04-27 20:00] VITALS: BP 114/72
[2017-04-27] MEDS: ATORVASTATIN 40 MG TABLET PO SCH (21:46)
[2017-04-27] MEDS: TRAZODONE 50 MG TABLET PO SCH (21:46)
[2017-04-28] MEDS: IV LR 1000 ML 1,000 ML IV PRN ×2 (00:54→11:16)
--- NOTE | 2017-04-28 01:14 | NUR ---
MS RN NOTES PATIENT SLEEPING INTERMITTENTLY. CLOSE OBSERVATION DONE.
[2017-04-28] MEDS: ACETAMINOPHEN 325 MG TABLET PO PRN (01:50)
--- NOTE | 2017-04-28 01:51 | NUR ---
PRN TYLENOL GIVEN PATIENT C/O PAIN TO LOWER BACK 09/01 & PRN TYLENOL GIVEN AFTER DISCUSSING WITH THE PATIENT. WILL MONITOR FOR EFFECTIVENESS OF PAIN MEDICINE.
--- NOTE | 2017-04-28 06:26 | NUR ---
MS RN CLOSING NOTES PATIENT SLEPT INTERMITTENTLY. NO SOB, NO ACUTE DISTRESS NOTED. C/O LOWER BACK PAIN NOTED, PRN TYLENOL GIVEN & WAS EFFECTIVE.A & O X 3. IV ACCESS TO LFA, INTACT PATENT, RUNNING WITH RL @ 100ML/HR. NO C/O ABDOMINAL PAIN NOTED AT NIGHT. REPOSITIONED IN BED. ON O2 VIA NC @ 2LPM, PRN. SAFETY MEASURES IN PLACE. BED IN LOW LOCKED POSITION. CALL LIGHT WITHIN REACH. WILL ENDORSE TO AM RN FOR CONTINUITY OF CARE.
[2017-04-28] MEDS: FAMOTIDINE (20 MG) 20 MG TABLET PO SCH (06:37)
--- NOTE | 2017-04-28 07:35 | NUR ---
RN OPENING NOTES RECEIVED PT. IN BED A&OX2-3 WATCHING TV, PT. WAS FORGETFUL. BREATHING UNLABORED ON OXYGEN AT 2L/MIN VIA NASAL CANNULA. NO S/S OF ACUTE DISTRESS. IV FLUIDS RUNNING. ALL IV ACCESS IS PATENT AND INTACT. BED IS IN LOWEST, LOCKED POSITION, 3 SIDE RAILS UP, BED ALARM ON, AND INSTRUCTED PT. TO USE CALL LIGHT FOR ASSISTANC.E WILL CONTINUE TO ASSESS AND MONITOR.
[2017-04-28 08:00] VITALS: BP 112/69
[2017-04-28 09:00] VITALS: BP 145/75
[2017-04-28] MEDS: AMLODIPINE BESYLATE 5 MG TABLET PO SCH (09:00)
[2017-04-28] MEDS: VALSARTAN 80 MG TABLET PO SCH (09:00)
[2017-04-28 09:34] LABS: BASOPHILS # (AUTO) 0.1 /CMM (0.0-0.2); BASOPHILS % (AUTO) 0.6 % (0.0-2.0); EOSINOPHILS # (AUTO) 0.4 /CMM (0.0-0.7); EOSINOPHILS % (AUTO) 4.8 % (0.0-6.0); HEMATOCRIT 28 % (39-51); HEMOGLOBIN 9.1 g/dL (13.5-17.5); LYMPHOCYTES # (AUTO) 2.4 /CMM (0.8-4.8); LYMPHOCYTES % (AUTO) 26.4 % (20.0-44.0); MEAN CORPUSCULAR HEMOGLOBIN 27 PG (26.0-33.0); MEAN CORPUSCULAR HGB CONC 32 g/dl (31.0-36.0); MEAN CORPUSCULAR VOLUME 84 fL (80-96); MONOCYTES # (AUTO) 0.5 /CMM (0.1-1.30); MONOCYTES % (AUTO) 6.2 % (2.0-12.0); NEUTROPHILS # (AUTO) 5.5 /CMM (1.8-8.9); PLATELET COUNT (AUTO) 270 /CMM (150-450); RDW COEFFICIENT OF VARIATION 16.6 (11.5-15.0); RED BLOOD CELL COUNT(AUTO) 3.34 MIL/uL (4.5-6.0); WHITE BLOOD COUNT (AUTO) 8.9 K/uL (4.3-11.0)
[2017-04-28] MEDS ORDERED: DOCU-25 PO (10:33)
[2017-04-28] MEDS ORDERED: PANT40TA2 PO (10:33)
[2017-04-28] MEDS: GABAPENTIN 300 MG CAPSULE PO SCH (10:52)
[2017-04-28] MEDS: FLUTICASONE PROPIONATE 16 GM BOTTLE NS SCH (10:52)
[2017-04-28] MEDS: POLYETHYLENE GLYCOL 3350 17 GM POWD.PACK PO SCH (10:52)
[2017-04-28] MEDS: TAMSULOSIN 0.4 MG CAP.SR.24H PO SCH (10:53)
[2017-04-28] MEDS: VENLAFAXINE XR 150 MG CAP.SR.24H PO SCH (10:53)
[2017-04-28] MEDS: LamoTRIgine 25 MG TABLET PO SCH (11:05)
--- NOTE | 2017-04-28 16:00 | NUR ---
FELT HOOKER NOTES PT. WAS DISCHARGED TO ASSISTED LIVING FACILITY IN MEDICALLY STABLE CONDITION BY AMBULANCE. DISCHARGE INSTRUCTIONS, AND EDUCATION WAS GIVEN TO PATIENT, AND P.T'S INSIDE SALES PROFESSIONAL TIA WHO WAS AT BEDSIDE FOR DISCHARGE. PT. ID AND IV WAS REMOVED WITHOUT COMPLICATIONS. BELONGINGS LIST CHECKED AND SIGNED. TIA LEFT WITH PT.'S DISCHARGE PACKET. TALKED TO PT.'S CAREGIVER, ROCIO OVER THE PHONE FROM [facility] AND EXPLAINED PT.'S DISCHARGE INSTRUCTIONS, ROCIO VERBALIZED UNDERSTANDING. PT.'S SKIN ASSESSMENT PICTURES TAKEN AND PLACED IN CHART BEFORE DISCHARGE.
== END 2017-04-28 16:06 | disposition home or self-care (01) | DRG 378 ==
LOC: ER 19:54 → TELE 23:03 → MED 04-23 11:02
PROVIDERS: ADMIT Family Medicine; ATTEND Family Medicine
PROC: 0DB98ZX Excision of Duodenum, Via Natural or Artificial Opening Endoscopic, Diagnostic (ICD-10-PCS; principal; 2017-04-27 10:32)
PROC: 0DB68ZX Excision of Stomach, Via Natural or Artificial Opening Endoscopic, Diagnostic (ICD-10-PCS; 2017-04-27 10:32)
DX: K26.4 Chronic or unspecified duodenal ulcer with hemorrhage (principal); I69.354 Hemiplegia and hemiparesis following cerebral infarction affecting left non-dominant side; D50.0 Iron deficiency anemia secondary to blood loss (chronic); D62 Acute posthemorrhagic anemia; K56.41 Fecal impaction; D72.829 Elevated white blood cell count, unspecified; E78.5 Hyperlipidemia, unspecified; E87.6 Hypokalemia; I25.10 Atherosclerotic heart disease of native coronary artery without angina pectoris; K21.9 Gastro-esophageal reflux disease without esophagitis; Z85.841 Personal history of malignant neoplasm of brain; Z98.2 Presence of cerebrospinal fluid drainage device; I10 Essential (primary) hypertension; F32.9 Major depressive disorder, single episode, unspecified; N40.0 Benign prostatic hyperplasia without lower urinary tract symptoms; K44.9 Diaphragmatic hernia without obstruction or gangrene; K29.80 Duodenitis without bleeding
CPT/HCPCS: 36415; 71010-TC; 80048-TC; 80061-TC; 80076-TC; 81000-TC; 82272-TC; 83540-TC; 83605-TC; 83690-TC; 83735-TC; 84100-TC; 84484-TC; 85025-TC; 85730-TC; 86850-TC; 87040-TC; 87081-TC; 87086-TC; 88305-TC; 88313-TC; 88342; A4606; C9113; J2270; J2405; J2704; J3490; J7030; J7040; J7050; J7120; Q0164; Q9967; Z7610

== ENCOUNTER 2017-08-11 22:52 | Inpatient (IN) | payer BC, MEDICARE ==
[~2017-08-11] VITALS: Ht 180.3 cm; Wt 74.4 kg
[~2017-08-11 22:52] MED LIST changes: +CLOP75TA15 PO; -CLOP75TA2 PO; +DOCU-141 PO; +PANT40TA2 PO
--- NOTE | 2017-08-11 22:52 | NUR ---
[place] [facility] HERE FOR "BEEN ALTERED SINCE 1499" BY RA. NO SOB NOTED. NO PAIN NOTED. A/OX1 ONLY RESPONDING "YEAH". VSS NAD WILL CONTINUE TO MONITOR FOR ANY CHANGES
[2017-08-11] MEDS ORDERED: IV NS 0.9% 1,000 ML BAG IV ONE (23:30)
[2017-08-11] MEDS ORDERED: LIDOCAINE 2% JEL UROJET 10 ML MM ONE (23:33)
[2017-08-11 23:38] LABS: BASOPHILS # (AUTO) 0.1 /CMM (0.0-0.2); BASOPHILS % (AUTO) 0.7 % (0.0-2.0); EOSINOPHILS # (AUTO) 0.2 /CMM (0.0-0.7); EOSINOPHILS % (AUTO) 2.5 % (0.0-6.0); HEMATOCRIT 29 % (39-51); HEMOGLOBIN 9.7 g/dL (13.5-17.5); LYMPHOCYTES # (AUTO) 3.6 /CMM (0.8-4.8); LYMPHOCYTES % (AUTO) 35.7 % (20.0-44.0); MEAN CORPUSCULAR HEMOGLOBIN 27 PG (26.0-33.0); MEAN CORPUSCULAR HGB CONC 33 g/dl (31.0-36.0); MEAN CORPUSCULAR VOLUME 81 fL (80-96); MONOCYTES # (AUTO) 0.7 /CMM (0.1-1.30); MONOCYTES % (AUTO) 6.7 % (2.0-12.0); NEUTROPHILS # (AUTO) 5.4 /CMM (1.8-8.9); NEUTROPHILS % (AUTO) 54.4 % (43.0-81.0); PLATELET COUNT (AUTO) 328 /CMM (150-450); RDW COEFFICIENT OF VARIATION 15.9 (11.5-15.0); RED BLOOD CELL COUNT(AUTO) 3.62 MIL/uL (4.5-6.0)
--- NOTE | 2017-08-11 23:47 | NUR ---
PT TO CT VIA STRETCHER, VSS.
[2017-08-11 23:51] LABS: CALCIUM, SERUM 8.6 mg/dL (8.5-10.1); CARBON DIOXIDE 26 mmol/L (21-32); CHLORIDE 98 mmol/L (98-107); CREATININE 0.7 mg/dL (0.6-1.3); GLUCOSE 111 mg/dL (74-106); INR 0.92 (0.87-1.13); POTASSIUM 4.1 mmol/L (3.5-5.1); SODIUM SERUM 133 mmol/L (136-145); UREA NITROGEN, BLOOD 14 mg/dL (7-18)
[2017-08-11 23:55] LABS: ALANINE AMINOTRANSFERASE 23 U/L (12-78); ALBUMIN 3.3 g/dL (3.4-5.0); ALKALINE PHOSPHATASE 95 U/L (46-116); ASPARTATE AMINOTRANSFERASE 22 U/L (15-37); BILIRUBIN,DIRECT 0.1 mg/dL (0.0-0.2); BILIRUBIN,TOTAL 0.2 mg/dL (0.2-1.0)
[2017-08-11 23:57] LABS: SERUM AMMONIA < 10 umol/L (11-32); TROPONIN I < 0.017 ng/mL (0.00-0.056)
[2017-08-12 00:44] LABS: APPEARANCE,URINE SL CLOUDY (CLEAR); BILIRUBIN,URINE NEGATIVE (NEGATIVE); BLOOD, URINE 2+ Ery/uL (NEGATIVE); COLOR,URINE YELLOW (YELLOW); KETONES,URINE NEGATIVE (NEGATIVE); LEUKOCYTE ESTERASE ,URINE 3+ (NEGATIVE); NITRITE, URINE NEGATIVE (NEGATIVE); PROTEIN,URINE NEGATIVE (NEGATIVE); UGLUCOSE NEGATIVE (NEGATIVE); UROBILINOGEN,URINE 0.2 EU/dL (0.2)
[2017-08-12 00:49] LABS: BACTERIA,URINE Moderate /HPF (None Seen); SQUAMOUS EPITHELIAL CELL,UR Rare /HPF (None Seen); WBC,URINE 21-50 /HPF (0-3)
[2017-08-12] MEDS ORDERED: BACL10TA PO (00:50)
[2017-08-12] MEDS ORDERED: FAMO20TA8 PO (00:50)
--- NOTE | 2017-08-12 01:19 | NUR ---
CALLED [facility]. NOT RESIN MAKER THIS WEEKEND; DEEFFERED TO PANEL.
[2017-08-12] MEDS ORDERED: PIPERACILLIN /TAZOBACTAM 3.375 G VIAL IV ONE (01:26)
[2017-08-12] MEDS ORDERED: PIPERACILLIN /TAZOBACTAM 3.375 G in IV D5W 50 ML IV ONE (01:30)
--- NOTE | 2017-08-12 01:52 | NUR ---
208-1. REPORT TO KANDACE
--- NOTE | 2017-08-12 02:01 | NUR ---
REPORT CALLED TO LENNY JERONIMO FOR BRENDA.
[2017-08-12 02:30] VITALS: BP 140/75
[2017-08-12] MEDS ORDERED: ONDANSETRON HCL/PF 4 MG/2 ML VIAL IVP PRN (02:30)
[2017-08-12] MEDS ORDERED: Z GUARD REMEDY 2 OZ OINT TP PRN (02:30)
[2017-08-12] MEDS ORDERED: ACETAMINOPHEN 325 MG TABLET PO PRN (02:30)
[2017-08-12] MEDS ORDERED: MAGNESIUM HYDROXIDE 30 ML UDC PO PRN (02:30)
[2017-08-12] MEDS ORDERED: MAG HYDROX/AL HYDROX/SIMETH 30 ML UDC PO PRN (02:30)
[2017-08-12] MEDS ORDERED: BACLOFEN (10 MG) 10 MG TABLET PO PRN (02:30)
[2017-08-12] MEDS: IV NS 0.9% 1,000 ML IV PRN ×2 (02:45→16:10)
[2017-08-12] MEDS ORDERED: CEFTRIAXONE 1 G VIAL ONE (03:12)
[2017-08-12] MEDS: CEFTRIAXONE 1 G in IV D5W 50 ML IV SCH (03:16)
--- NOTE | 2017-08-12 04:16 | NUR ---
RN NOTES RECEIVE PT FROM [facility] AT 0209 VIA JESSY. ADMIT TO MS FLOOR. A/O X 1, CONFUSED. STABLE CONDITION . NOT APPARENT DISTRESS, KEPT CLEAN AND COMFORTABLE. BREATHING EVEN AND UNLABORED, SAFETY MEASURES ARE IN PLACE, CALL LIGHT WITHIN REACH, WILL CONTINUE TO MONITOR PT.HEAD TO SKIN ASSESSMENT IS DONE.
--- NOTE | 2017-08-12 06:30 | NUR ---
MS RN CLOSING NOTES PATIENT IN BED ASLEEP AND EASILY AWAKEN, STABLE, ON 2LPM VIA NC 02 SAT AT 98% CONFUSED, REORIENTED MULTIPLE TIMES. HEAD OF BED ELEVATED FOR BETTER LUNG EXPANSION AND GOOD CIRCULATION. NO SOB, NOT IN APPARENT DISTRESS, NO NAUSEA, NO VOMITING, IV SITE INTACT WITH NO S/S OF INFILTRATION NOTED, KEPT CLEAN AND DRY AND COMFORTABLE. VS STABLE, ALL DUE MEDS WAS GIVEN. NEEDS ATTENDED AND ANTICIPATED. NURSING CARE RENDERED, NO S/S OF BLEEDING NOTED. KEPT CLEAN DRY AND COMFORTABLE. ASSISTED REPOSITION EVERY 2 HOURS FOR COMFORT AND SKIN MANAGEMENT. PT ON LOW BED TO ENSURE SAFETY, CALL LIGHT WITHIN REACH, WILL ENDORSE TO THE NEXT SHIFT CONTINUE PLAN OF CARE.
[2017-08-12] MEDS ORDERED: LACTULOSE 10 G/15 ML UDC (PYXIS) PO PRN (07:30)
--- NOTE | 2017-08-12 07:30 | NUR ---
MS RN NOTES PATIENT IN BED, ABLE TO WAKE UP, DELAYED SPEECH, APPEARS CONFUSED. ON OXYGEN AT 2L VIA NC, TOLERATING WELL. PIPELINE CONTROLLER SOB. IVC LFA PATENT AND INTACT, IVF INFUSING AT 75ML/HR, NPO STATUS ORDERED. LEFT SIDED WEAKNESS, BLE STIFF AND RIGID. MAINTAIN SAFETY PRECAUTION, CALL LIGHT WITHIN REACH. WILL CONT TO MONITOR.
[2017-08-12] MEDS: TAMSULOSIN 0.4 MG CAP.SR.24H PO SCH (09:00)
[2017-08-12] MEDS: VENLAFAXINE XR 150 MG CAP.SR.24H PO SCH ×2 (09:00→09:41)
[2017-08-12] MEDS: GABAPENTIN 300 MG CAPSULE PO SCH ×2 (09:00→16:39)
[2017-08-12] MEDS: LamoTRIgine 25 MG TABLET PO SCH ×2 (09:00→16:39)
[2017-08-12] MEDS: CLOPIDOGREL BISULFATE 75 MG TABLET PO SCH (09:00)
[2017-08-12] MEDS: POLYETHYLENE GLYCOL 3350 17 GM POWD.PACK PO SCH (09:00)
[2017-08-12] MEDS: ASPIRIN EC 81 MG TABLET.DR PO SCH (09:00)
[2017-08-12] MEDS: DOCUSATE SODIUM 100 MG CAPSULE PO SCH ×2 (09:00→16:39)
[2017-08-12] MEDS: FAMOTIDINE (20 MG) 20 MG TABLET PO SCH ×2 (09:00→16:39)
[2017-08-12 09:04] VITALS: BP 166/88
[2017-08-12] MEDS: PANTOPRAZOLE 40 MG TABLET.DR PO SCH (09:41)
[2017-08-12] MEDS: FLUTICASONE PROPIONATE 16 GM BOTTLE NS SCH ×2 (10:28→16:46)
[2017-08-12 15:45] VITALS: BP 156/83
--- NOTE | 2017-08-12 18:52 | NUR ---
MS RN CLOSING NOTES PATIENT IS CONFUSED. FREQUENT REORIENTATION GIVEN, MAINTAIN SAFETY PRECAUTION. ON PUREED DIET, TOLERATED WELL, ASPIRATION PRECAUTION OBSERVED. AFEBRILE DURING THE SHIFT. CONT ANTIBIOTIC IV AND HOSPITALIZATION PER MD. CALL LIGHT WITHIN REACH. WILL ENDORSE TO ONCOMING RN.
--- NOTE | 2017-08-12 19:30 | NUR ---
RN NOTE; RECEIVED PT IN BED DOZING INTERMITTENTLY. BREATHING EVENLY. NO SOB. NAD. SKIN WARM AND DRY. NO S/S OR C/O PAIN OR DISCOMFORT. BED LOW LOCKED. CALL LIGHT WITHIN REACH. WILL CONT TO MONITOR ,
[2017-08-12 20:00] VITALS: BP 147/77
[2017-08-12 20:03] VITALS: BP 147/77
[2017-08-12] MEDS: ATORVASTATIN 40 MG TABLET PO SCH (21:21)
[2017-08-12] MEDS: TRAZODONE 50 MG TABLET PO SCH (21:21)
[2017-08-13] MEDS: CEFTRIAXONE 1 G in IV D5W 50 ML IV SCH (03:36)
[2017-08-13] MEDS: IV NS 0.9% 1,000 ML IV PRN ×2 (03:36→18:17)
--- NOTE | 2017-08-13 06:39 | NUR ---
PT IN BED AWAKE. BREATHING EVENLY. NO SOB. NAD .SKIN WARM AND DRY. NO CHANGE IN MENTATION NOTED , REMAINED CALM AND QUIET, NEEDS ATTENDED , CLEANED AND DRIED, BED LOW LOCKED. CALL LIGHT WITHIN REACH, WILL CONT TO MONITOR AND WILL ENDORSE TO AM SHIFT FOR BRENDA.
[2017-08-13 06:59] LABS: BASOPHILS # (AUTO) 0.1 /CMM (0.0-0.2); EOSINOPHILS # (AUTO) 0.3 /CMM (0.0-0.7); EOSINOPHILS % (AUTO) 3.9 % (0.0-6.0); HEMATOCRIT 27 % (39-51); LYMPHOCYTES # (AUTO) 2.6 /CMM (0.8-4.8); LYMPHOCYTES % (AUTO) 34.6 % (20.0-44.0); MEAN CORPUSCULAR HEMOGLOBIN 27 PG (26.0-33.0); MEAN CORPUSCULAR HGB CONC 33 g/dl (31.0-36.0); MEAN CORPUSCULAR VOLUME 81 fL (80-96); MONOCYTES # (AUTO) 0.5 /CMM (0.1-1.30); MONOCYTES % (AUTO) 6.7 % (2.0-12.0); NEUTROPHILS % (AUTO) 53.8 % (43.0-81.0); PLATELET COUNT (AUTO) 304 /CMM (150-450); RDW COEFFICIENT OF VARIATION 16.2 (11.5-15.0); RED BLOOD CELL COUNT(AUTO) 3.36 MIL/uL (4.5-6.0); WHITE BLOOD COUNT (AUTO) 7.5 K/uL (4.3-11.0)
[2017-08-13 07:38] LABS: CHOLESTEROL 107 mg/dL (<200); HDL CHOLESTEROL 64 mg/dL (40-60); LDL 36 mg/dL (0-99); THYROID STIMULATING HORMONE 1.952 uIU/mL (0.358-3.74); TRIGLYCERIDES 78 mg/dL (30-150)
[2017-08-13 07:51] LABS: CALCIUM, SERUM 8.3 mg/dL (8.5-10.1); CARBON DIOXIDE 28 mmol/L (21-32); CHLORIDE 104 mmol/L (98-107); CREATININE 0.5 mg/dL (0.6-1.3); GLUCOSE 80 mg/dL (74-106); PHOSPHORUS 4.4 mg/dL (2.5-4.9); POTASSIUM 3.9 mmol/L (3.5-5.1); SODIUM SERUM 138 mmol/L (136-145); UREA NITROGEN, BLOOD 7 mg/dL (7-18)
[2017-08-13 08:27] VITALS: BP 156/79
[2017-08-13] MEDS: FLUTICASONE PROPIONATE 16 GM BOTTLE NS SCH ×2 (08:31→17:05)
[2017-08-13] MEDS: PANTOPRAZOLE 40 MG TABLET.DR PO SCH (08:31)
--- NOTE | 2017-08-13 08:33 | NUR ---
MS RN NOTES PATIENT IN BED, AWAKE, A/O X1, WITH CONFUSION. OXYGEN AT 2L VIA NC, NO SOB. SPEECH DELAYED. IVC LFA PATENT AND INTACT, IVF INFUSING AT 75ML/HR, ON PURRED DIET, TOLERATING WELL. LEFT SIDED WEAKNESS. MAINTAIN SAFETY AND ASPIRATION PRECAUTION, CALL LIGHT WITHIN REACH. WILL CONT TO MONITOR.
[2017-08-13] MEDS: FAMOTIDINE (20 MG) 20 MG TABLET PO SCH ×2 (08:36→17:02)
[2017-08-13] MEDS: ASPIRIN EC 81 MG TABLET.DR PO SCH (08:36)
[2017-08-13] MEDS: CLOPIDOGREL BISULFATE 75 MG TABLET PO SCH (08:36)
[2017-08-13] MEDS: LamoTRIgine 25 MG TABLET PO SCH ×2 (08:36→17:02)
[2017-08-13] MEDS: GABAPENTIN 300 MG CAPSULE PO SCH ×2 (08:36→17:02)
[2017-08-13] MEDS: TAMSULOSIN 0.4 MG CAP.SR.24H PO SCH (08:36)
[2017-08-13] MEDS: VENLAFAXINE XR 150 MG CAP.SR.24H PO SCH (08:36)
[2017-08-13] MEDS: POLYETHYLENE GLYCOL 3350 17 GM POWD.PACK PO SCH (08:36)
[2017-08-13] MEDS: DOCUSATE SODIUM 100 MG CAPSULE PO SCH ×2 (08:36→17:02)
[2017-08-13] MEDS: HYDROCODONE/APAP 5/325MG 1 EACH TABLET PO PRN ×2 (09:17→14:30)
[2017-08-13 16:00] VITALS: BP 159/81
--- NOTE | 2017-08-13 19:18 | NUR ---
MS RN CLOSING NOTES PATIENT IS A/O X1, FORGETFUL, FREQUENT REORIENTATION GIVEN, MAINTAIN SAFETY PRECAUTION. ON PUREED DIET, TOLERATED WELL, ASPIRATION PRECAUTION OBSERVED. AFEBRILE DURING THE SHIFT. SEEN BY DR. SPICER TODAY FOR CONSULT. CONT ANTIBIOTIC IV AND HOSPITALIZATION PER MD. CALL LIGHT WITHIN REACH. WILL ENDORSE TO ONCOMING RN.
--- NOTE | 2017-08-13 19:30 | NUR ---
MS RN NOTES PATIENT RECEIVED RESTING INSIDE ROOM, AWAKE, ALERT AND ORIENTED TO SELF. NO SOB OR ACUTE DISTRESS NOTED AT THIS TIME. BREATHING EVEN AND UNLABORED. DENIES ANY PAIN OR DISCOMFORT. BILATERAL UPPER SIDE RAILS UP AND LOCKED. BED LOCKED AND IN LOW POSITION. NO CHANGES IN LOC NOTED AT THIS TIME. WILL CONTINUE TO MONITOR. CALL LIGHT WITHIN EASY REACH
[2017-08-13 20:00] VITALS: BP 165/99
--- NOTE | 2017-08-13 21:13 | NUR ---
PATIENT NOTED WITH ELEVATED BLOOD PRESSURE, SBP>160. PLACED A CALL TO [employer] RETREAD OPERATOR AND SPOKE TO KEREN DE LA PAZ NP W/ A NEW ORDER FOR HYDRALAZINE PO X ONE. WILL CONT TO MONITOR .
[2017-08-13] MEDS: ATORVASTATIN 40 MG TABLET PO SCH (21:30)
[2017-08-13] MEDS ORDERED: hydrALAZINE HCL 10 MG TABLET PO ONE (21:30)
[2017-08-13] MEDS: TRAZODONE 50 MG TABLET PO SCH (21:33)
[2017-08-13 22:31] VITALS: BP 134/76
[2017-08-14] MEDS: CEFTRIAXONE 1 G in IV D5W 50 ML IV SCH (02:38)
--- NOTE | 2017-08-14 06:43 | NUR ---
MS RN NOTES PATIENT RESTING INSIDE ROOM, AWAKE, ALERT WITH PERIODS OF FORGETFULNESS. VERBALLY RESPONSIVE AND RESPONDS TO VERBAL AND TACTILE STIMULI. PATIENT BREATHING EVEN AND UNLABORED. NO SOB OR ACUTE DISTRESS NOTED AT THIS TIME. PATIENT REMAINS CALM AND RELAXED. NO CHANGES IN LOC NOTED. PATIENT KEPT CLEAN, DRY AND COMFORTABLE. PROVIDED WITH CALM, SAFE, HAZARD-FREE ENVIRONMENT. ALL NURSING NEEDS ATTENDED AND MET. ALL DUE MEDICATIONS GIVEN AND TOLERATED WELL. WILL ENDORSE TO INCOMING SHIFT
[2017-08-14] MEDS: IV NS 0.9% 1,000 ML IV PRN (07:49)
--- NOTE | 2017-08-14 07:57 | NUR ---
MS RN NOTES PATIENT IN BED, AWAKE, A/O X1, WITH CONFUSION. OXYGEN AT 2L VIA NC, NO SOB. SPEECH DELAYED. IVC LFA PATENT AND INTACT, IVF INFUSING AT 75ML/HR, LEFT SIDED WEAKNESS, BLE CONTRACTED. ON PURRED DIET, TOLERATING WELL. MAINTAIN SAFETY AND ASPIRATION PRECAUTION, CALL LIGHT WITHIN REACH. WILL CONT TO MONITOR.
[2017-08-14 08:00] VITALS: BP 144/87
--- NOTE | 2017-08-14 08:00 | NUR ---
WOUND CARE CONSULT: PT PRESENTS WITH INCONTINENCE, LEFT SIDED WEAKNESS, LEFT LEG CONTRACTURE AND DRY ABRASION TO LEFT POSTERIOR LOWER LEG, PRESENT ON ADMISSION. ALL SKIN PROTECTION MEASURES IN PLACE AND DISCUSSED WITH NURSING STAFF. CURRENT LEAH SCORE IS 13. PT ON LEITER ISOFLEX LOW AIRLOSS BED. WILL SEE PRN. URBINA IN AGREEMENT WITH PLAN OF CARE. Addendum: 08/14/17 at 0802 by IZZY PONCE WNDNU Amended: Links added.
[2017-08-14] MEDS: DOCUSATE SODIUM 100 MG CAPSULE PO SCH ×2 (08:05→16:12)
[2017-08-14] MEDS: TAMSULOSIN 0.4 MG CAP.SR.24H PO SCH (08:05)
[2017-08-14] MEDS: POLYETHYLENE GLYCOL 3350 17 GM POWD.PACK PO SCH (08:05)
[2017-08-14] MEDS: ASPIRIN EC 81 MG TABLET.DR PO SCH (08:05)
[2017-08-14] MEDS: GABAPENTIN 300 MG CAPSULE PO SCH ×2 (08:05→16:12)
[2017-08-14] MEDS: VENLAFAXINE XR 150 MG CAP.SR.24H PO SCH (08:05)
[2017-08-14] MEDS: PANTOPRAZOLE 40 MG TABLET.DR PO SCH (08:05)
[2017-08-14] MEDS: FAMOTIDINE (20 MG) 20 MG TABLET PO SCH ×2 (08:05→16:12)
[2017-08-14] MEDS: LamoTRIgine 25 MG TABLET PO SCH ×2 (08:05→16:12)
[2017-08-14] MEDS: CLOPIDOGREL BISULFATE 75 MG TABLET PO SCH (08:05)
[2017-08-14] MEDS: FLUTICASONE PROPIONATE 16 GM BOTTLE NS SCH ×2 (08:10→16:14)
[2017-08-14] MEDS ORDERED: CEFT1VIA15 IV (14:02)
[2017-08-14 16:00] VITALS: BP 172/93
[2017-08-14 16:30] VITALS: BP 172/93
[2017-08-14] MEDS ORDERED: CLONIDINE HCL 0.1 MG TABLET PO ONE (16:30)
[2017-08-14 17:45] VITALS: BP 140/91
--- NOTE | 2017-08-14 18:03 | NUR ---
MS RN DISCHARGED PATIENT HAS BEEN CLEARED FOR DISCHARGE HOME BY MD. EPISODE OF INCREASED BLOOD PRESSURE TODAY BP 172/93, WAS GIVEN CLONIDINE 0.1MG PO PRN X1, EFFECTIVE. DECREASED BP TO 140/91 AT 1745. PATIENT DENIES HEADACHE, NO C/O AU DISCOMFORT. IVC IN LFA REMOVED, GAUZE APPLIED, NO BLEEDING NOTED. PATIENT WILL CONT ANTIBIOTIC IV X3 DAYS AT THE BOARD & CARE, PERSONAL ASSISTANCE ARACELI INFORMED. BELONGINGS CHECKED AND SEND WITH THE PATIENT UPON DC. PATIENT LEFT HOSP IN STABLE CONDITION VIA AMBULANCE.
== END 2017-08-14 18:21 | disposition home or self-care (01) | DRG 689 ==
LOC: ER 22:56 → TELE2 08-12 02:12 → MEDSG2 08-12 19:22
PROVIDERS: ADMIT Nurse Practitioner Acute Care; ATTEND Nurse Practitioner Acute Care
DX: N39.0 Urinary tract infection, site not specified (principal); G93.41 Metabolic encephalopathy; I69.359 Hemiplegia and hemiparesis following cerebral infarction affecting unspecified side; C71.9 Malignant neoplasm of brain, unspecified; E87.1 Hypo-osmolality and hyponatremia; D63.8 Anemia in other chronic diseases classified elsewhere; E78.5 Hyperlipidemia, unspecified; I10 Essential (primary) hypertension; G40.909 Epilepsy, unspecified, not intractable, without status epilepticus; F32.9 Major depressive disorder, single episode, unspecified; G89.4 Chronic pain syndrome; K21.9 Gastro-esophageal reflux disease without esophagitis; Z86.73 Personal history of transient ischemic attack (TIA), and cerebral infarction without residual deficits; N40.0 Benign prostatic hyperplasia without lower urinary tract symptoms; I25.10 Atherosclerotic heart disease of native coronary artery without angina pectoris; M62.838 Other muscle spasm; Z79.82 Long term (current) use of aspirin; Z79.899 Other long term (current) drug therapy
CPT/HCPCS: 36415; 70450-TC; 71045-TC; 80048-TC; 80061-TC; 80076-TC; 81000-TC; 82140-TC; 82962-TC; 83605-TC; 83735-TC; 84100-TC; 84443-TC; 84484-TC; 85025-TC; 85730-TC; 87081-TC; 87086-TC; 87186-TC; 97112-TC; A4606; J0696; J2543; J7030; J7060; Z7610

== ENCOUNTER 2017-08-26 12:50 | Inpatient (IN) | payer MEDICARE, OTHER ==
[~2017-08-26] VITALS: Ht 188 cm; Wt 71.7 kg
[~2017-08-26 12:50] MED LIST changes: -AMLO5TAB4 PO; +BACL10TA PO; +CEFT1VIA15 IV; +FAMO20TA8 PO; -LOPE2TAB25 PO; -RANI150T8 PO; -VALS80TA26 PO
[2017-08-26] MEDS ORDERED: LIDOCAINE 2% JEL UROJET 10 ML MM ONE (12:56)
[2017-08-26 13:24] LABS: BASOPHILS % (AUTO) 0.4 % (0.0-2.0); EOSINOPHILS # (AUTO) 0.2 /CMM (0.0-0.7); EOSINOPHILS % (AUTO) 1.6 % (0.0-6.0); HEMATOCRIT 31 % (39-51); HEMOGLOBIN 9.9 g/dL (13.5-17.5); LYMPHOCYTES # (AUTO) 2.8 /CMM (0.8-4.8); LYMPHOCYTES % (AUTO) 21.5 % (20.0-44.0); MEAN CORPUSCULAR HEMOGLOBIN 25 PG (26.0-33.0); MEAN CORPUSCULAR HGB CONC 32 g/dl (31.0-36.0); MEAN CORPUSCULAR VOLUME 80 fL (80-96); MONOCYTES # (AUTO) 0.9 /CMM (0.1-1.30); MONOCYTES % (AUTO) 6.9 % (2.0-12.0); NEUTROPHILS % (AUTO) 69.6 % (43.0-81.0); PLATELET COUNT (AUTO) 451 /CMM (150-450); RDW COEFFICIENT OF VARIATION 15.7 (11.5-15.0); RED BLOOD CELL COUNT(AUTO) 3.89 MIL/uL (4.5-6.0); WHITE BLOOD COUNT (AUTO) 12.9 K/uL (4.3-11.0)
--- NOTE | 2017-08-26 13:28 | NUR ---
PT REC'D TO UNALBE TO URINATE NELSON 16FR 200CC OUTPUT IV STARTED 20 RT FA LABS DRAWN AND UA SEN TTO LAB FAMILY AT BEDSIDE . LEGS ARE CONTRACTED LEFT ARM HX CVA HASNT HAD BM IN 4 DAYS IV FLUIDS NS 500CC
[2017-08-26] MEDS ORDERED: IV NS 0.9% 500 ML BAG IV ONE ×2 (13:30→14:30)
--- NOTE | 2017-08-26 13:32 | NUR ---
[facility] XRAY DONE
[2017-08-26 13:40] LABS: ALANINE AMINOTRANSFERASE 20 U/L (12-78); ALBUMIN 3.2 g/dL (3.4-5.0); ALKALINE PHOSPHATASE 91 U/L (46-116); ASPARTATE AMINOTRANSFERASE 25 U/L (15-37); BILIRUBIN,DIRECT 0.1 mg/dL (0.0-0.2); BILIRUBIN,TOTAL 0.2 mg/dL (0.2-1.0); CALCIUM, SERUM 8.9 mg/dL (8.5-10.1); CARBON DIOXIDE 26 mmol/L (21-32); CHLORIDE 96 mmol/L (98-107); CREATININE 0.6 mg/dL (0.6-1.3); GLUCOSE 103 mg/dL (74-106); LIPASE 239 U/L (73-393); POTASSIUM 3.9 mmol/L (3.5-5.1); SODIUM SERUM 132 mmol/L (136-145); TOTAL PROTEIN, SERUM 7.5 g/dL (6.4-8.2); UREA NITROGEN, BLOOD 18 mg/dL (7-18)
[2017-08-26 13:42] LABS: TROPONIN I < 0.017 ng/mL (0.00-0.056)
--- NOTE | 2017-08-26 13:44 | NUR ---
CVA 2015 VSS PT REPOSTIONED FOR COMFORT AWAITING EVALUATION BY ER PROVIDER.
[2017-08-26 13:51] LABS: INR 0.96 (0.87-1.13)
[2017-08-26 14:04] LABS: APPEARANCE,URINE CLEAR (CLEAR); BILIRUBIN,URINE 1+ (NEGATIVE); BLOOD, URINE NEGATIVE Ery/uL (NEGATIVE); COLOR,URINE YELLOW (YELLOW); KETONES,URINE NEGATIVE (NEGATIVE); LEUKOCYTE ESTERASE ,URINE NEGATIVE (NEGATIVE); NITRITE, URINE NEGATIVE (NEGATIVE); PROTEIN,URINE TRACE mg/dl (NEGATIVE); UGLUCOSE NEGATIVE (NEGATIVE); UROBILINOGEN,URINE 0.2 EU/dL (0.2)
--- NOTE | 2017-08-26 14:14 | NUR ---
PAGED EPIC FOR PANEL
[2017-08-26 14:27] LABS: BACTERIA,URINE 1+ /HPF (None Seen); MUCUS,URINE Few /LPF (None Seen); SQUAMOUS EPITHELIAL CELL,UR 0-2 /HPF (None Seen); WBC,URINE 0-2 /HPF (0-3)
[2017-08-26] MEDS ORDERED: CEFAZOLIN 1 GM in IV D5W 50 ML IV ONE (14:30)
[2017-08-26] MEDS ORDERED: IV NS 0.9% 1,000 ML IV PRN (14:35)
[2017-08-26] MEDS ORDERED: LOPE2CAP PO (14:40)
[2017-08-26] MEDS ORDERED: DOCU100C36 PO (14:40)
--- NOTE | 2017-08-26 14:41 | NUR ---
PT SLEEPING RESP EVEN UNLABORED MEDS GIVEN PER MD ORDER VSS
--- NOTE | 2017-08-26 14:48 | NUR ---
CALLED NURSE SUP FOR MED SURG BED
[2017-08-26] MEDS ORDERED: MAGNESIUM HYDROXIDE 30 ML UDC PO PRN ×2 (15:00→15:30)
[2017-08-26] MEDS ORDERED: MAG HYDROX/AL HYDROX/SIMETH 30 ML UDC PO PRN ×2 (15:00→15:30)
[2017-08-26] MEDS ORDERED: ENOXAPARIN SODIUM 40 MG/0.4 ML DISP.SYRIN SQ SCH (15:00)
[2017-08-26] MEDS ORDERED: HYDROCODONE/APAP 10/325MG 1 EA TABLET PO PRN ×2 (15:00→15:30)
[2017-08-26] MEDS ORDERED: PROCHLORPERAZINE MALEATE 10 MG TABLET PO PRN ×3 (15:00→16:30)
[2017-08-26] MEDS ORDERED: ONDANSETRON HCL/PF 4 MG/2 ML VIAL IVP PRN ×2 (15:00→15:30)
[2017-08-26] MEDS ORDERED: ACETAMINOPHEN 325 MG TABLET PO PRN ×2 (15:00→15:30)
[2017-08-26] MEDS ORDERED: LOPERAMIDE HCL (2 MG CAP) 2 MG CAPSULE PO PRN ×2 (15:00→15:30)
[2017-08-26] MEDS ORDERED: HYDROCODONE/APAP 5/325MG 1 EACH TABLET PO PRN (15:00)
[2017-08-26] MEDS ORDERED: Z GUARD REMEDY 2 OZ OINT TP PRN ×2 (15:00→15:30)
--- NOTE | 2017-08-26 15:03 | NUR ---
PT SENT TO CT
--- NOTE | 2017-08-26 15:16 | NUR ---
[facility]
--- NOTE | 2017-08-26 15:23 | NUR ---
PT TRANSFERED TO FLOOR STABLE
--- NOTE | 2017-08-26 15:30 | NUR ---
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 REPORT GIVEN BY BERT GALVEZ. A/O X 2. NO SIGNS OF ACUTE DISTRESS. NO COMPLAIN OF PAIN OR DISCOMFORT. INCONTINENT OF BOWEL. F/C INTACT AND FLOWING FREELY. SKIN NOTED INTACT. R WRIST GZ 20 IV SITE INTACT AND FLUSHING WELL. ALL NEEDS ATTENDED TO. CALL LIGHT WITHIN REACH. WILL CONTINUE TO MONITOR TO ENSURE SAFETY.
[2017-08-26 15:43] VITALS: BP 115/67
[2017-08-26] MEDS: DOCUSATE SODIUM 100 MG CAPSULE PO SCH (16:23)
[2017-08-26] MEDS: VENLAFAXINE XR 150 MG CAP.SR.24H PO SCH (16:23)
[2017-08-26] MEDS: GABAPENTIN 300 MG CAPSULE PO SCH (16:23)
[2017-08-26] MEDS: FAMOTIDINE (20 MG) 20 MG TABLET PO SCH (16:24)
[2017-08-26] MEDS: LamoTRIgine 25 MG TABLET PO SCH (16:24)
[2017-08-26] MEDS: IV NS 0.9% 1,000 ML IV PRN (16:24)
[2017-08-26] MEDS ORDERED: LACTULOSE 10 G/15 ML UDC (PYXIS) PO PRN (16:30)
[2017-08-26] MEDS ORDERED: FAMOTIDINE (20 MG) 20 MG TABLET PO SCH (17:00)
[2017-08-26] MEDS ORDERED: DOCUSATE SODIUM 100 MG CAPSULE PO SCH (17:00)
[2017-08-26] MEDS ORDERED: FLUTICASONE PROPIONATE 16 GM BOTTLE NS SCH (17:00)
[2017-08-26] MEDS: FLUTICASONE PROPIONATE 16 GM BOTTLE NS SCH (17:00)
[2017-08-26] MEDS ORDERED: LamoTRIgine 25 MG TABLET PO SCH (17:00)
[2017-08-26] MEDS ORDERED: GABAPENTIN 300 MG CAPSULE PO SCH (17:00)
--- NOTE | 2017-08-26 18:20 | NUR ---
MS/RN CLOSING NOTE PATIENT IN BED IN STABLE CONDITION. A/O X 2. NO SIGNS OF ACUTE DISTRESS. NO COMPLAIN OF PAIN OR DISCOMFORT. ALL NEEDS ATTENDED TO. CALL LIGHT WITHIN REACH. WILL ENDORSE TO NEXT SHIFT FOR CONTINUITY OF CARE.
[2017-08-26 20:00] VITALS: BP 135/71
--- NOTE | 2017-08-26 20:00 | NUR ---
MS RN OPENING NOTES: RECEIVED PATIENT IN BED, AWAKE, NO COMPLAINS OF PAIN OR DISCOMFROT THIS TIME OF ASSESSMENT. NO SIGNS OF RESPIRATORY DISTRESS NOTES. PATIENT IS WITH IVF ON RIGHT WRIST AREA-NOTED AREA TO BE INFILTRATED- CHANGED SITE TO LEFT WRIST AREA WITH G#22- WITH GOOD RETURN FLOW OF BLOOD. PATIENT HAS NO OTHER COMPLAINS THIS TIME OF ASSESSMENT. FOLY CATH IN PLACE DRAINING YELLOW CLEAR URINE. WILL CONTINUE TO MONITOR PATIENT.
[2017-08-26] MEDS ORDERED: CEFAZOLIN 1 GM in IV NS 0.9% 50 ML IV SCH (21:00)
[2017-08-26] MEDS ORDERED: ATORVASTATIN 40 MG TABLET PO SCH (22:00)
[2017-08-26] MEDS: TRAZODONE 50 MG TABLET PO SCH (22:21)
[2017-08-26] MEDS: ATORVASTATIN 40 MG TABLET PO SCH (22:22)
[2017-08-26] MEDS: CEFAZOLIN 1 GM in IV NS 0.9% 50 ML IV SCH (23:11)
[2017-08-27] MEDS: CEFAZOLIN 1 GM in IV NS 0.9% 50 ML IV SCH ×3 (04:24→22:03)
[2017-08-27] MEDS: IV NS 0.9% 1,000 ML IV PRN ×2 (04:26→22:03)
--- NOTE | 2017-08-27 07:18 | NUR ---
MS RN CLOSING NOTES: PATIENT IN BED, ASLEEP. SKIN ASSESSMENT DONE. NO OPEN WOUNDS OR SKIN ISSUES NOTED THIS TIME.PATIENT WITH IVF ON GOING AT LEFT WRIST AREA G#22 NS @75ML/HR. FLOWING GOOD , WITH NO SIGNS OF REDNESS OR PHLEBITIS NOTED THIS TIME. NELSON CATH IN PLACE DRAINING YELLOW CLEAR URINE. PATIENT HAS NO COMPLAINS OF PAIN OR DISCOMFORT THIS TIME. WILL CONTINUE TO MONITOR. WILL ENDORSE PATIENT TO DAY SHIFT NURSE.
--- NOTE | 2017-08-27 07:30 | NUR ---
RN NOTES PATIENT ASLEEP BUT EASILY AROUSABLE, NO S/SX OF PAIN OR DISCOMFORT, BREATHING EVEN AND UNLABORED, NO SOB NOTED. KEPT PATIENT COMFORTABLE, NEEDS ATTENDED, CALL LIGHT WITHINR EACH, SAFETY MEASURES IN PLACED, WILL CONTINUE TO MONITOR.
[2017-08-27] MEDS ORDERED: CLOPIDOGREL BISULFATE 75 MG TABLET PO SCH (09:00)
[2017-08-27] MEDS ORDERED: TAMSULOSIN 0.4 MG CAP.SR.24H PO SCH (09:00)
[2017-08-27] MEDS ORDERED: ASPIRIN EC 81 MG TABLET.DR PO SCH (09:00)
[2017-08-27] MEDS ORDERED: POLYETHYLENE GLYCOL 3350 17 GM POWD.PACK PO SCH (09:00)
[2017-08-27] MEDS: FAMOTIDINE (20 MG) 20 MG TABLET PO SCH ×2 (09:24→17:05)
[2017-08-27] MEDS: ASPIRIN EC 81 MG TABLET.DR PO SCH (09:24)
[2017-08-27] MEDS: DOCUSATE SODIUM 100 MG CAPSULE PO SCH ×2 (09:24→17:05)
[2017-08-27] MEDS: GABAPENTIN 300 MG CAPSULE PO SCH ×2 (09:24→17:05)
[2017-08-27] MEDS: TAMSULOSIN 0.4 MG CAP.SR.24H PO SCH (09:24)
[2017-08-27] MEDS: LamoTRIgine 25 MG TABLET PO SCH ×2 (09:24→17:05)
[2017-08-27] MEDS: CLOPIDOGREL BISULFATE 75 MG TABLET PO SCH (09:24)
[2017-08-27] MEDS: VENLAFAXINE XR 150 MG CAP.SR.24H PO SCH (09:24)
[2017-08-27] MEDS: POLYETHYLENE GLYCOL 3350 17 GM POWD.PACK PO SCH (09:25)
[2017-08-27] MEDS: FLUTICASONE PROPIONATE 16 GM BOTTLE NS SCH ×2 (09:33→17:04)
[2017-08-27] MEDS: HYDROCODONE/APAP 5/325MG 1 EACH TABLET PO PRN (10:00)
[2017-08-27 10:55] VITALS: BP 134/77
[2017-08-27 13:24] LABS: BASOPHILS # (AUTO) 0.1 /CMM (0.0-0.2); BASOPHILS % (AUTO) 0.7 % (0.0-2.0); EOSINOPHILS # (AUTO) 0.2 /CMM (0.0-0.7); EOSINOPHILS % (AUTO) 2.4 % (0.0-6.0); HEMATOCRIT 26 % (39-51); HEMOGLOBIN 8.6 g/dL (13.5-17.5); LYMPHOCYTES # (AUTO) 2.5 /CMM (0.8-4.8); LYMPHOCYTES % (AUTO) 26.8 % (20.0-44.0); MEAN CORPUSCULAR HEMOGLOBIN 26 PG (26.0-33.0); MEAN CORPUSCULAR HGB CONC 33 g/dl (31.0-36.0); MEAN CORPUSCULAR VOLUME 79 fL (80-96); MONOCYTES # (AUTO) 0.7 /CMM (0.1-1.30); MONOCYTES % (AUTO) 7.5 % (2.0-12.0); NEUTROPHILS # (AUTO) 5.9 /CMM (1.8-8.9); NEUTROPHILS % (AUTO) 62.6 % (43.0-81.0); PLATELET COUNT (AUTO) 394 /CMM (150-450); RDW COEFFICIENT OF VARIATION 15.7 (11.5-15.0); RED BLOOD CELL COUNT(AUTO) 3.34 MIL/uL (4.5-6.0); WHITE BLOOD COUNT (AUTO) 9.4 K/uL (4.3-11.0)
[2017-08-27 13:33] LABS: CARBON DIOXIDE 25 mmol/L (21-32); CHLORIDE 98 mmol/L (98-107); CREATININE 0.5 mg/dL (0.6-1.3); GLUCOSE 106 mg/dL (74-106); POTASSIUM 3.7 mmol/L (3.5-5.1); SODIUM SERUM 131 mmol/L (136-145); UREA NITROGEN, BLOOD 11 mg/dL (7-18)
[2017-08-27 16:00] VITALS: BP 140/74
--- NOTE | 2017-08-27 18:59 | NUR ---
RN NOTES PATIENT A/OX1-2, ABLE TO VERBALIZE NEEDS, BREATHING EVEN AND UNLABORED, NO SOB NOTED, DENIES PAIN AT THIS TIME, ALL DUE MEDS GIVEN ORDERED, NEEDS ATTENDED AND MET, TURNED AND REPOSITIONED EVERY 2 HOURS, SKIN CARE RENDERED, PIV INFUSING AND TOLERATING WELL, CALL LIGHT WITHIN REACH, WILL ENDORSE TO ANIMAL BIOLOGIST FOR BRENDA.
--- NOTE | 2017-08-27 19:40 | NUR ---
MS RN OPENING NOTES RECEIVED PT SITTING UPRIGHT IN BED. AWAKE AND RESPONSIVE. RESPIRATIONS ARE EVEN AND UNLABORED, NOT IN ANY ACUTE DISTRESS NOTED. DENIES ANY PAIN AT THIS TIME. DENIES ANY SOB, N/V. SAFETY MEASURES IN PLACE. INSTRUCTED PT TO USE CALL LIGHT WHEN ASSISTANCE IS NEEDED, CALL LIGHT IS LEFT WITHIN REACH. WILL CONTINUE TO MONITOR THROUGHOUT SHIFT.
[2017-08-27 20:00] VITALS: BP 116/78
[2017-08-27] MEDS: ATORVASTATIN 40 MG TABLET PO SCH (22:03)
[2017-08-27] MEDS: TRAZODONE 50 MG TABLET PO SCH (22:04)
[2017-08-28] MEDS: HYDROCODONE/APAP 5/325MG 1 EACH TABLET PO PRN (00:48)
[2017-08-28] MEDS: CEFAZOLIN 1 GM in IV NS 0.9% 50 ML IV SCH ×2 (04:08→12:14)
--- NOTE | 2017-08-28 06:12 | NUR ---
MS RN CLOSING NOTES ALL DUE MEDS GIVEN, NEEDS MET AND RENDERED. AWAKE AND RESPONSIVE, EASILY AROUSABLE. REMAINS AFEBRILE. RESPIRATIONS ARE EVEN AND UNLABORED, NOT IN ANY ACUTE DISTRESS NOTED. DENIES ANY PAIN AT THIS TIME. DENIES CHEST PAIN, SOB, N/V. IV TO SITE INTACT, NO INFILTRATION NOTED. DRESSING KEPT CLEAN AND DRY. REPOSITIONED Q2H TO PREVENT FURTHER SKIN INJURIES. REMINDED PT TO USE CALL LIGHT WHEN ASSISTANCE IS NEEDED, CALL LIGHT IS LEFT WITHIN REACH. SAFETY MEASURES ARE IN PLACE. BED IS IN ITS LOW AND LOCKED POSITION. WILL ENDORSE TO NEXT SHIFT FOR CONTINUITY OF CARE.
--- NOTE | 2017-08-28 07:15 | NUR ---
MS RN NOTES RECEIVED PATIENT IN BED , ALERT ORIENTED X2. NO ACUTE DISTRESS NOTED. NO SOB NOTED. BREATHING UNLABORED. IV ACCESS PATENT AND INTACT, NO S/SX OR REDNESS OR SWELLING. SAFETY MEASURES IN PLACE. HOB ELEVATED. WILL CONTINUE TO MONITOR ACCORDINGLY.
[2017-08-28 08:00] VITALS: BP 160/91
[2017-08-28] MEDS: FAMOTIDINE (20 MG) 20 MG TABLET PO SCH ×2 (08:52→16:04)
[2017-08-28] MEDS: FLUTICASONE PROPIONATE 16 GM BOTTLE NS SCH ×2 (08:52→16:05)
[2017-08-28] MEDS: ASPIRIN EC 81 MG TABLET.DR PO SCH (08:52)
[2017-08-28] MEDS: TAMSULOSIN 0.4 MG CAP.SR.24H PO SCH (08:52)
[2017-08-28] MEDS: GABAPENTIN 300 MG CAPSULE PO SCH ×2 (08:52→16:04)
[2017-08-28] MEDS: VENLAFAXINE XR 150 MG CAP.SR.24H PO SCH (08:52)
[2017-08-28] MEDS: LamoTRIgine 25 MG TABLET PO SCH ×2 (08:53→16:04)
[2017-08-28] MEDS: CLOPIDOGREL BISULFATE 75 MG TABLET PO SCH (08:53)
[2017-08-28] MEDS: DOCUSATE SODIUM 100 MG CAPSULE PO SCH ×2 (08:53→16:04)
[2017-08-28] MEDS: POLYETHYLENE GLYCOL 3350 17 GM POWD.PACK PO SCH (08:53)
[2017-08-28 09:54] VITALS: BP 160/91
[2017-08-28] MEDS: IV NS 0.9% 1,000 ML IV PRN (13:39)
[2017-08-28 15:34] LABS: CALCIUM, SERUM 7.7 mg/dL (8.5-10.1); CARBON DIOXIDE 25 mmol/L (21-32); CHLORIDE 93 mmol/L (98-107); CREATININE 0.4 mg/dL (0.6-1.3); GLUCOSE 96 mg/dL (74-106); POTASSIUM 3.5 mmol/L (3.5-5.1); SODIUM SERUM 127 mmol/L (136-145); UREA NITROGEN, BLOOD 7 mg/dL (7-18)
[2017-08-28 16:00] VITALS: BP 134/75
--- NOTE | 2017-08-28 18:00 | NUR ---
MS TRUCK DRIVER NOTES PATIENT DISCHARGED IN STABLE CONDITION. NO ACUTE DISTRESS NOTED. BREATHING UNLABORED. DISCHARGE INSTRUCTIONS GIVEN TO THE PATIENT CAREGIVER AT BEDSIDE, VERBALIZED UNDERSTANDING. NELSON CATHETER INTACT AND PATENT, DRAINING WELL. NO SEDIMENTS NOTED. IV ACCESS REMOVED , NO S/SX OF BLEEDING OR SWELLING NOTED. NEEDS ATTENDED.PICKED UP BY AMBULANCE ACCOMPANIED BY 2 EMT PERSONNEL IN STABLE CONDITION.
== END 2017-08-28 17:50 | disposition home or self-care (01) | DRG 725 ==
LOC: ER 12:51 → MED 15:37
PROVIDERS: ADMIT Nurse Practitioner Acute Care; ATTEND Nurse Practitioner Acute Care
DX: N40.1 Benign prostatic hyperplasia with lower urinary tract symptoms (principal); G93.40 Encephalopathy, unspecified; E44.1 Mild protein-calorie malnutrition; E87.1 Hypo-osmolality and hyponatremia; G62.9 Polyneuropathy, unspecified; E88.09 Other disorders of plasma-protein metabolism, not elsewhere classified; I69.354 Hemiplegia and hemiparesis following cerebral infarction affecting left non-dominant side; D63.8 Anemia in other chronic diseases classified elsewhere; G40.909 Epilepsy, unspecified, not intractable, without status epilepticus; K21.9 Gastro-esophageal reflux disease without esophagitis; R33.8 Other retention of urine; E78.5 Hyperlipidemia, unspecified; I10 Essential (primary) hypertension; I25.10 Atherosclerotic heart disease of native coronary artery without angina pectoris; Z85.841 Personal history of malignant neoplasm of brain; D72.829 Elevated white blood cell count, unspecified; D47.3 Essential (hemorrhagic) thrombocythemia; M62.838 Other muscle spasm; F32.9 Major depressive disorder, single episode, unspecified; E86.1 Hypovolemia; G89.4 Chronic pain syndrome; Z68.20 Body mass index [BMI] 20.0-20.9, adult; R53.81 Other malaise
CPT/HCPCS: 36415; 71045-TC; 80048-TC; 80076-TC; 81000-TC; 83605-TC; 83690-TC; 84484-TC; 85025-TC; 85730-TC; 87040-TC; 87081-TC; A4216; A4606; J0690; J3490; J7030; J7040; J7060; Q0164; Z7610

== ENCOUNTER 2017-09-19 14:58 | Emergency (ER) | payer MEDICARE, OTHER ==
[~2017-09-19] VITALS: Ht 188 cm; Wt 78.9 kg
[~2017-09-19 14:58] MED LIST changes: -BACL10TA PO; -CEFT1VIA15 IV; -DOCU-141 PO; +DOCU100C36 PO; +LOPE2CAP PO; -PANT40TA2 PO; -PROC10TA PO; +PROC10TA13 PO; -TRAZ-147 PO; +TRAZ-214 PO
--- NOTE | 2017-09-19 15:13 | NUR ---
BBDTR FROM HOME DT BLOOD IN THE URINE. PATIENT ON FOLLEY-- DRAINING WELL,NO SIGNIFCANT BLOOD NOTED AT THIS TIME. PATIENT IS AWAKE AND ALERT. AFEBRILE. DENIES DISCOMFORT. VSS
[2017-09-19] MEDS ORDERED: IV NS 0.9% 500 ML BAG IV ONE (15:30)
[2017-09-19] MEDS ORDERED: LIDOCAINE 2% JEL UROJET 10 ML MM ONE (16:38)
--- NOTE | 2017-09-19 17:23 | NUR ---
SET UP BLS RIG WITH SELENA KAY 52 MIN - TRIP# [id number]
[2017-09-19 18:40] VITALS: BP 122/68
--- NOTE | 2017-09-19 18:40 | NUR ---
Patient discharged to home in stable condition. Written and verbal after care instructions given. Patient'S FAMILY verbalize understanding of instruction.
== END 2017-09-19 18:42 | disposition home or self-care (01) ==
LOC: ER 14:59
DX: E86.0 Dehydration (principal); Z46.6 Encounter for fitting and adjustment of urinary device; K21.9 Gastro-esophageal reflux disease without esophagitis; I10 Essential (primary) hypertension; E78.5 Hyperlipidemia, unspecified; I25.10 Atherosclerotic heart disease of native coronary artery without angina pectoris; F32.9 Major depressive disorder, single episode, unspecified; N40.0 Benign prostatic hyperplasia without lower urinary tract symptoms; G89.4 Chronic pain syndrome; Z79.82 Long term (current) use of aspirin; Z86.73 Personal history of transient ischemic attack (TIA), and cerebral infarction without residual deficits
CPT/HCPCS: A4606; J3490; J7040; Z7610

== ENCOUNTER 2017-09-22 15:55 | Inpatient (IN) | payer MEDICARE, BC ==
[~2017-09-22] VITALS: Ht 190.5 cm; Wt 65.8 kg
--- NOTE | 2017-09-22 15:55 | NUR ---
BIB CG FROM B/C C/O MORE ALTERED THAN USUAL, COLD TO TOUCH NELSON IN PLACE. PLACED ON MONITOR.
[2017-09-22 16:19] LABS: BASOPHILS # (AUTO) 0.1 /CMM (0.0-0.2); BASOPHILS % (AUTO) 0.5 % (0.0-2.0); EOSINOPHILS % (AUTO) 6.6 % (0.0-6.0); HEMATOCRIT 33 % (39-51); HEMOGLOBIN 10.6 g/dL (13.5-17.5); LYMPHOCYTES # (AUTO) 2.9 /CMM (0.8-4.8); MEAN CORPUSCULAR HGB CONC 33 g/dl (31.0-36.0); MEAN CORPUSCULAR VOLUME 77 fL (80-96); MONOCYTES # (AUTO) 0.9 /CMM (0.1-1.30); MONOCYTES % (AUTO) 5.6 % (2.0-12.0); NEUTROPHILS # (AUTO) 10.3 /CMM (1.8-8.9); NEUTROPHILS % (AUTO) 68.3 % (43.0-81.0); PLATELET COUNT (AUTO) 553 /CMM (150-450); RDW COEFFICIENT OF VARIATION 15.7 (11.5-15.0); RED BLOOD CELL COUNT(AUTO) 4.23 MIL/uL (4.5-6.0); WHITE BLOOD COUNT (AUTO) 15.2 K/uL (4.3-11.0)
[2017-09-22] MEDS ORDERED: FERR325T23 PO (16:30)
[2017-09-22] MEDS ORDERED: IV NS 0.9% 1,000 ML BAG IV ONE ×2 (16:30→18:00)
[2017-09-22] MEDS ORDERED: VALS80TA2 PO (16:30)
[2017-09-22] MEDS ORDERED: MAGN400O6 PO (16:30)
[2017-09-22] MEDS ORDERED: PANT40TA2 PO (16:31)
[2017-09-22] MEDS ORDERED: BISA10SU8 RC (16:31)
[2017-09-22] MEDS ORDERED: ONDA4TAB10 PO (16:31)
[2017-09-22] MEDS ORDERED: AMLO5TAB7 PO (16:31)
[2017-09-22 16:32] LABS: CALCIUM, SERUM 9.4 mg/dL (8.5-10.1); CARBON DIOXIDE 27 mmol/L (21-32); CHLORIDE 99 mmol/L (98-107); CREATININE 0.8 mg/dL (0.6-1.3); GLUCOSE 114 mg/dL (74-106); POTASSIUM 4.3 mmol/L (3.5-5.1); SODIUM SERUM 135 mmol/L (136-145); UREA NITROGEN, BLOOD 18 mg/dL (7-18)
[2017-09-22 16:33] LABS: INR 0.93 (0.85-1.15)
[2017-09-22 16:37] LABS: ALANINE AMINOTRANSFERASE 18 U/L (12-78); ALBUMIN 3.4 g/dL (3.4-5.0); ALKALINE PHOSPHATASE 91 U/L (46-116); ASPARTATE AMINOTRANSFERASE 20 U/L (15-37); BILIRUBIN,DIRECT 0.1 mg/dL (0.0-0.2); BILIRUBIN,TOTAL 0.2 mg/dL (0.2-1.0); TOTAL PROTEIN, SERUM 7.7 g/dL (6.4-8.2)
--- NOTE | 2017-09-22 16:39 | NUR ---
ROBERT BOOKER IS NOT CATTLE DEALER FOR [facility]ILLATOR[facility]. ADMIT PATIENT TO [facility] PER VOICE MESSAGE.
[2017-09-22 16:45] LABS: TROPONIN I < 0.017 ng/mL (0.00-0.056)
[2017-09-22 16:48] LABS: APPEARANCE,URINE Cloudy (CLEAR); BILIRUBIN,URINE MODERATE (NEGATIVE); BLOOD, URINE Large Ery/uL (NEGATIVE); COLOR,URINE Dark (YELLOW); KETONES,URINE Trace (NEGATIVE); LEUKOCYTE ESTERASE ,URINE Small (NEGATIVE); NITRITE, URINE Negative (NEGATIVE); PROTEIN,URINE >=300 mg/dl (NEGATIVE); UGLUCOSE Negative (NEGATIVE)
[2017-09-22 17:06] LABS: BACTERIA,URINE 3+ /HPF (None Seen); MUCUS,URINE Many /LPF (None Seen); RBC,URINE TOO NUMEROUS TO COUN /HPF (0-2); SQUAMOUS EPITHELIAL CELL,UR None Seen /HPF (None Seen); WBC,URINE 21-50 /HPF (0-3)
[2017-09-22] MEDS ORDERED: CEFTRIAXONE 1 G in IV D5W 50 ML IV ONE (17:30)
[2017-09-22] MEDS ORDERED: CEFTRIAXONE 1GM BAG (ER ONLY) 50 ML IV ONE (17:44)
--- NOTE | 2017-09-22 17:44 | NUR ---
PT IS UNABLE TO STRAIGHTEN LOWER EXTREMITIES, TOO CONTRACTED TO FIT IN CT SCANNER. UNABLE TO SCAN, ER IS AWARE.
--- NOTE | 2017-09-22 17:50 | NUR ---
[facility] CALLED DR BENSON FOOD SELECTOR [phone]
[2017-09-22] MEDS ORDERED: MAG HYDROX/AL HYDROX/SIMETH 30 ML UDC PO PRN (18:00)
[2017-09-22] MEDS ORDERED: MAGNESIUM HYDROXIDE 30 ML UDC PO PRN (18:00)
[2017-09-22] MEDS ORDERED: Z GUARD REMEDY 2 OZ OINT TP PRN (18:00)
[2017-09-22] MEDS ORDERED: ONDANSETRON HCL/PF 4 MG/2 ML VIAL IVP PRN (18:00)
[2017-09-22] MEDS ORDERED: ZOLPIDEM TARTRATE 5 MG TABLET PO PRN (18:00)
[2017-09-22] MEDS ORDERED: FEE PK DOSING 1 MIN EA MC ONE (18:02)
--- NOTE | 2017-09-22 18:04 | NUR ---
GAVE REPORT TO DI GALVEZ TELE ROOM 324-1 SEPSIS TRANSFER VIA ACLS PROTOCOL
[2017-09-22 18:33] VITALS: BP 150/81
--- NOTE | 2017-09-22 18:34 | NUR ---
SUPERVISOR CIGAR MAKING HAND: ADMITTING/ CLOSING NOTE PT TO BE ADMITTED TELE. A/OX2-3. VS STABLE. ON TELE MONITORING PACING AT [address] NELSON CATH IN PLACE AND DRAINING. URINE CLOUDY AND YELLOW. SKIN INTACT. CONTRACTED BLE. LUE PARALYSIS DUE TO HX OF STROKE. L FA #20 HL. SITE CLEAR AND PATENT. RESTORATIVE AIDE AT BEDSIDE. WILL ENDORSE TO NEXT SHIFT NURSE. RESTING COMFORTABLY IN BED. CALL LIGHT WITHIN REACH.
--- NOTE | 2017-09-22 19:00 | NUR ---
tele/rn opening notes RECEIVED ENDORSEMENT FROM AM RN REGARDING NEW ADMITTED PATIENT WHO ARRIVED ON THE FLOOR 182O, ACCOMPANIED BY FAMILY FLIGHT COMMUNICATIONS OFFICER, ARRIVED ON A GURNEY CAME FROM HOME WITH CAREGIVER COMPLAIN OF FEVER, PATIENT WITH GOOD EYE CONTACT , RESPONSIVE WITH SIMPLE WORDS,ABLE TO PARTICIPATE WITH CARE, RESPIRATIONS EVEN AND UNLABORED, SKIN INTACT, LEFT SIDED WEAKNESS AND WEEK ON BLE. REQUIRE ASSISTANCE WITH ADL AND FEEDING, WITH DX OF SEPSIS WITH UTI, TELE READING AT ST [address]. WILL MONITOR, CALL LIGHTS WITHIN REACH, BED IN LOCK POSITION.
[2017-09-22 19:37] VITALS: BP 153/85
[2017-09-22] MEDS: VANCOMYCIN 1 GM in IV D5W 250 ML IV SCH (19:48)
[2017-09-22] MEDS: IV NS 0.9% 1,000 ML IV PRN (19:49)
[2017-09-22 20:00] VITALS: BP 153/85
[2017-09-22] MEDS: ENOXAPARIN SODIUM 40 MG/0.4 ML DISP.SYRIN SQ SCH (21:08)
[2017-09-22] MEDS: PIPERACILLIN /TAZOBACTAM 4.5 G in IV NS 0.9% 50 ML IV SCH (21:10)
[2017-09-23] VITALS: BP 128/66
--- NOTE | 2017-09-23 01:44 | NUR ---
TELE/RN NOTED MD LEFT MESSAGE REGARDING HOME MEDICATIONS TO BE RECONCILED, TO FOLLOW UP, AWAITING FOR ORDER, CURRENTLY PATIENT HAS HX OF SEIZURE, HTN, AND CHRONIC BACK PAIN,
--- NOTE | 2017-09-23 02:13 | NUR ---
TELE/RN NOTES MD VERIFIED MEDICATION FOR 3 HOME MEDICATIONS FOR SEIZURE, LAMOTRIGINE 25MG PO TAB BID, GABAPENTIN 300MG CAP BID AND AMLODIPINE BESYLATE 5MG PO DAILY. WILL CARRYOUT ORDER, WILL FOLLOW UP REST OF HOME MEDS IN AM TO ENDORSE WITH AM RN.
[2017-09-23] MEDS: GABAPENTIN 300 MG CAPSULE PO SCH ×3 (02:42→17:41)
[2017-09-23] MEDS: LamoTRIgine 25 MG TABLET PO SCH ×3 (02:42→17:41)
[2017-09-23 04:00] VITALS: BP 127/66
[2017-09-23] MEDS: PIPERACILLIN /TAZOBACTAM 4.5 G in IV NS 0.9% 50 ML IV SCH ×3 (05:01→17:41)
--- NOTE | 2017-09-23 06:20 | NUR ---
324-2 TELE/RN NOTES PATIENT IN BED, HOB ELEVATES, ABLE TO SLEEP ATLEAST 6 TO 7 HOURS, RESPIRATIONS EVEN AND UNLABORED, ALERT X2, KEPT SKIN INTACT AND DRY, ON IV FLIDS RUNNING AT 75 ML/HR, WILL ENDORSE TO AM RN FOR BRENDA.BED IN LOCK POSIITON, CALL LIGHTS WITHIN REACH, WILL CONTINUE TO MONITOR..
[2017-09-23 06:24] LABS: BASOPHILS # (AUTO) 0.1 /CMM (0.0-0.2); BASOPHILS % (AUTO) 0.7 % (0.0-2.0); EOSINOPHILS % (AUTO) 8.7 % (0.0-6.0); HEMATOCRIT 26 % (39-51); HEMOGLOBIN 8.4 g/dL (13.5-17.5); LYMPHOCYTES # (AUTO) 2.5 /CMM (0.8-4.8); LYMPHOCYTES % (AUTO) 21.4 % (20.0-44.0); MEAN CORPUSCULAR HGB CONC 32 g/dl (31.0-36.0); MEAN CORPUSCULAR VOLUME 78 fL (80-96); MONOCYTES # (AUTO) 0.7 /CMM (0.1-1.30); MONOCYTES % (AUTO) 5.6 % (2.0-12.0); NEUTROPHILS # (AUTO) 7.5 /CMM (1.8-8.9); NEUTROPHILS % (AUTO) 63.6 % (43.0-81.0); PLATELET COUNT (AUTO) 398 /CMM (150-450); RDW COEFFICIENT OF VARIATION 16.8 (11.5-15.0); RED BLOOD CELL COUNT(AUTO) 3.34 MIL/uL (4.5-6.0); WHITE BLOOD COUNT (AUTO) 11.9 K/uL (4.3-11.0)
[2017-09-23 06:57] LABS: TROPONIN I < 0.017 ng/mL (0.00-0.056)
[2017-09-23 07:07] VITALS: BP 140/85
[2017-09-23 07:07] LABS: ALANINE AMINOTRANSFERASE 14 U/L (12-78); ALBUMIN 2.8 g/dL (3.4-5.0); ALKALINE PHOSPHATASE 77 U/L (46-116); ASPARTATE AMINOTRANSFERASE 20 U/L (15-37); BILIRUBIN,TOTAL 0.2 mg/dL (0.2-1.0); CALCIUM, SERUM 8.5 mg/dL (8.5-10.1); CARBON DIOXIDE 27 mmol/L (21-32); CHLORIDE 102 mmol/L (98-107); CREATININE 0.5 mg/dL (0.6-1.3); GLUCOSE 83 mg/dL (74-106); MAGNESIUM 1.8 mg/dL (1.8-2.4); PHOSPHORUS 3.5 mg/dL (2.5-4.9); POTASSIUM 3.8 mmol/L (3.5-5.1); SODIUM SERUM 137 mmol/L (136-145); TOTAL PROTEIN, SERUM 6.3 g/dL (6.4-8.2); UREA NITROGEN, BLOOD 15 mg/dL (7-18)
--- NOTE | 2017-09-23 07:15 | NUR ---
RN OPENING NOTES PATIENT IN BED EYES CLOSED, RESPONSIVE TO VERBAL AND TACTILE STIMULI. NO ACUTE DISTRESS NOTED.BREATHING UNLABORED. IV ACCESS PATENT AND INTACT, NO REDNESS OR SWELLING NOTED. SAFETY MEASURES IN PLACE. CALL LIGHT WITHIN REACH. WILL CONTINUE TO MONITOR ACCORDINGLY.
[2017-09-23] MEDS: VANCOMYCIN 1 GM in IV D5W 250 ML IV SCH ×2 (08:21→19:49)
[2017-09-23] MEDS: AMLODIPINE BESYLATE 5 MG TABLET PO SCH (08:25)
--- NOTE | 2017-09-23 10:30 | NUR ---
RN NOTES SEEN AND EVALUATED BY DR BENSON AND DR MATHEW WITH NEW ORDERS MADE. NOTED AND CARRIED OUT.
[2017-09-23] MEDS: IV NS 0.9% 1,000 ML IV PRN (15:31)
[2017-09-23] MEDS: ACETAMINOPHEN 325 MG TABLET PO PRN (17:54)
--- NOTE | 2017-09-23 18:45 | NUR ---
RN CLOSING NOTES PATIENT IN BED EYES CLOSED, RESPONSIVE TO VERBAL AND TACTILE STIMULI. NO ACUTE DISTRESS NOTED.BREATHING UNLABORED. IV ACCESS PATENT AND INTACT, NO REDNESS OR SWELLING NOTED.NELSON CATHETER IN PLACE. DUE MEDICATIONS GIVEN, NO ASE NOTED. NEEDS ATTENDED AND ANTICIPATED. HOB ELEVATED. SAFETY MEASURES IN PLACE. CALL LIGHT WITHIN REACH. WILL CONTINUE TO MONITOR ACCORDINGLY. WILL ENDORSE TO NIGHT NURSE FOR CONTINUITY OF CARE.
--- NOTE | 2017-09-23 18:59 | NUR ---
ms/rn opening notes' PATIENT IN BED, RESTING COMFORTABLY IN BED, SKIN WARM TO TOUCH, NO GUARDING OR GRIMACE, SKIN WARM TO TOUCH, IV SITE ON LFA PATENT W/ NO S/S OF INFILTRATION, CALL LIGHTS WITHIN REACH, BED IN LOCK POSITION, AM RN TO ENDORSE BRENDA.
[2017-09-23 20:00] VITALS: BP 141/77
[2017-09-23] MEDS: ENOXAPARIN SODIUM 40 MG/0.4 ML DISP.SYRIN SQ SCH (21:12)
[2017-09-24] MEDS: PIPERACILLIN /TAZOBACTAM 4.5 G in IV NS 0.9% 50 ML IV SCH ×4 (00:39→17:38)
[2017-09-24] MEDS: ACETAMINOPHEN 325 MG TABLET PO PRN (05:11)
--- NOTE | 2017-09-24 05:15 | NUR ---
MS/RN NOTES LOPEZN REPORTED SOME MILD PAIN, TYLENO 650MG PO GIVEN WILL MONITOR EFFECTIVENESS.
--- NOTE | 2017-09-24 06:32 | NUR ---
324-2 MS/RN NOTES PATIENT IN BED, ALERT, ORIENTED X2, EXTENSIVE ASSISTANCE, KEEP PATIENT COMFORTABLE, REPOSITION FOR COMFORT, ABLE TO SLEEP DURING THE NIGHT, BED IN LOCK POSITION, IV SITE LFA 20G IPATENT, WILL ENDORSE TO AM RN FOR BRENDA.
--- NOTE | 2017-09-24 07:20 | NUR ---
MS/RN OPENING NOTE PATIENT ALERT AND ORIENTED X2. DENIES SOB. RESPIRATION REGULAR AND UNLABORED. DENIES PAIN. NELSON CATH. NO BLADDER DISTENSION NOTED. LFA G 20 PATENT AND IV INFUSING WITH NO S/S INFILTRATION. BED LOW AND LOCKED. SIDE RAILS UP X3. CALL LIGHT WITHIN REACH. WILL CONTINUE TO MONITOR.
[2017-09-24 07:36] LABS: CALCIUM, SERUM 8.1 mg/dL (8.5-10.1); CARBON DIOXIDE 27 mmol/L (21-32); CHLORIDE 102 mmol/L (98-107); CREATININE 0.7 mg/dL (0.6-1.3); GLUCOSE 83 mg/dL (74-106); POTASSIUM 3.5 mmol/L (3.5-5.1); SODIUM SERUM 137 mmol/L (136-145); UREA NITROGEN, BLOOD 8 mg/dL (7-18)
[2017-09-24 08:00] VITALS: BP 123/76
[2017-09-24] MEDS: LamoTRIgine 25 MG TABLET PO SCH ×2 (08:32→17:38)
[2017-09-24] MEDS: GABAPENTIN 300 MG CAPSULE PO SCH ×2 (08:32→17:38)
[2017-09-24] MEDS: AMLODIPINE BESYLATE 5 MG TABLET PO SCH (08:33)
[2017-09-24] MEDS: VANCOMYCIN 1 GM in IV D5W 250 ML IV SCH ×2 (08:33→19:47)
[2017-09-24] MEDS: HYDROCODONE/APAP 5/325MG 1 EACH TABLET PO PRN ×3 (08:41→19:47)
[2017-09-24] MEDS: IV NS 0.9% 1,000 ML IV PRN (12:55)
[2017-09-24 16:00] VITALS: BP 141/61
--- NOTE | 2017-09-24 18:24 | NUR ---
MS/RN CLOSING NOTE PATIENT ALERT AND ORIENTED X2. DENIES SOB AT THIS TIME. RESPIRATION REGULAR AND UNLABORED. O2 SATURATION IN ROOM AIR AT 95%. DENIES PAIN AT THIS TIME. NELSON CATH DRAINING CLEAR AND YELLOW COLOR URINE. NO BLADDER DISTENSION NOTED. LFA G 20 PATENT AND IV FLUIDS INFUSING WITH NO S/S INFILTRATION. PATIENT IS ASSISTED DURING MEAL TIMES. FLUIDS ENCOURAGED TOLERATED. GOOD AND GENTLE SKIN CARE RENDERED. TURNED AND REPOSITIONED Q2HR. ALL NEEDS ATTENDED AND ANTICIPATED. BED LOW AND LOCKED. SIDE RAILS UP X3. CALL LIGHT WITHIN REACH. WILL ENDORSE TO WELL LOGGING MUD ANALYSIS CAPTAIN.
--- NOTE | 2017-09-24 19:40 | NUR ---
MSRN HEARD PATIENT MOANING, STATED HAS PAIN ON HIS PENIS AND LOWER EXTREMITIES. WANTED NELSON CATH REMOVED. CHECKED NELSON SITE, URINE DRAINING WELL, SITE CLEANSED WITH BETADINE. REPOSITIONED FOR COMFORT, LOWER EXTREMITIES SEVERELY CONTRACTED, SUPPORTED WITH PILLOWS. HAS HISTORY OF URINARY RETENTION, EXPLAINED NEED TO HAVE CATHETER. APPEARS TO UNDERSTAND. WANTEE JUAREZ.TO CONTINUE.
[2017-09-24 20:00] VITALS: BP 148/76
--- NOTE | 2017-09-24 20:00 | NUR ---
MSRDwight PIZARRO ADMINISTERED 1 TAB FOR LOWER EXTREMITIES PAIN. TO CONTINUE.
[2017-09-24 20:30] VITALS: BP 148/76
--- NOTE | 2017-09-24 20:37 | NUR ---
MSRN FELT BETTER THIS TIME, CLOSELY WATCHED.
[2017-09-24] MEDS: ENOXAPARIN SODIUM 40 MG/0.4 ML DISP.SYRIN SQ SCH (22:52)
[2017-09-25] MEDS: PIPERACILLIN /TAZOBACTAM 4.5 G in IV NS 0.9% 50 ML IV SCH ×4 (00:55→18:07)
[2017-09-25] MEDS: HYDROCODONE/APAP 5/325MG 1 EACH TABLET PO PRN ×3 (03:11→19:49)
--- NOTE | 2017-09-25 03:13 | NUR ---
MS RN NOTE: IAN RAMIREZ RN. PATIENT COMPLAINS OF PAIN TO BUTTOCKS AREA 01/01, NORCO 5/325MG 1 TAB ORAL GIVEN PER MD ORDER. WILL CONTINUE TO MONITOR.
[2017-09-25] MEDS: IV NS 0.9% 1,000 ML IV PRN (06:09)
--- NOTE | 2017-09-25 06:50 | NUR ---
MSRN REMAINS STABLE, COOPERATIVE. REPOSITIONED FOR COMFORT. ZOSYN ON PROGRESS.
--- NOTE | 2017-09-25 07:20 | NUR ---
MS/RN OPENING NOTE PATIENT IS RECEIVED IN BED AWAKE. ALERT AND ORIENTED X2. REORIENTATION AND REDIRECTION PROVIDED. PATIENT DENIES PAIN AT THIS TIME. DENIES SOB AT THIS TIME. RESPIRATION REGULAR AND UNLABORED. IN NO APPARENT DISTRESS. NELSON CATH DRAINING FREELY. NOTED CLEAR AND YELLOW COLOR URINE. NO BLADDER DISTENSION NOTED. LFA G 20 PATENT AND IVF INFUSING WITH NO S/S INFILTRATION. BED LOW AND LOCKED. SIDE RAILS UP X3. BED ALARM ON. WILL CONTINUE TO MONITOR.
[2017-09-25 07:46] LABS: CALCIUM, SERUM 8.3 mg/dL (8.5-10.1); CARBON DIOXIDE 24 mmol/L (21-32); CHLORIDE 100 mmol/L (98-107); CREATININE 0.6 mg/dL (0.6-1.3); GLUCOSE 85 mg/dL (74-106); POTASSIUM 3.7 mmol/L (3.5-5.1); SODIUM SERUM 134 mmol/L (136-145); UREA NITROGEN, BLOOD 9 mg/dL (7-18)
[2017-09-25 08:00] VITALS: BP 120/72
[2017-09-25] MEDS: GABAPENTIN 300 MG CAPSULE PO SCH ×2 (08:14→16:44)
[2017-09-25] MEDS: AMLODIPINE BESYLATE 5 MG TABLET PO SCH (08:15)
[2017-09-25] MEDS: LamoTRIgine 25 MG TABLET PO SCH ×2 (08:15→16:44)
[2017-09-25] MEDS: VANCOMYCIN 1 GM in IV D5W 250 ML IV SCH ×2 (09:03→20:16)
--- NOTE | 2017-09-25 10:10 | NUR ---
MS/RN NOTE SKIN ASSESSMENT DONE AND PATIENT RIGHT HIP/THIGH HAS BLANCHABLE REDNESS (NOT MEASURABLE). PATIENT IS TURNED AND REPOSITIONED Q2HR. RIGHT HIP/THIGH OFFLOADING DONE. WILL ENDORSE TO INVESTMENT BANKING MANAGER. Addendum: 09/25/17 at 1722 by CONTRERAS CHAVEZ RN CORRECT LOCATION IS RIGHT THIGH HAS BLANCHABLE REDNESS INSTEAD OF RIGHT HIP/THIGH.
--- NOTE | 2017-09-25 10:23 | NUR ---
WOUND CARE CONSULT: PT PRESENTS WITH SACRAL SCARRING AND RT HIP/THIGH BLANCHABLE REDNESS. PT IS IMMOBILE WITH LOWER EXTREMITY CONTRACTURES. RECOMMEND LOW AIRLOSS MATTRESS. ALL SKIN PROTECTION RECOMMENDATIONS DISCUSSED WITH NURSING STAFF. IN AGREEMENT WITH PLAN OF CARE. Addendum: 09/25/17 at 1025 by IZZY PONCE WNDNU Amended: Links added. Addendum: 09/25/17 at 1034 by IZZY PONCE WNDNU DRY ABRASIONS AND DISCOLORATIONS NOTED TO BILATERAL HANDS.
[2017-09-25 11:05] LABS: BASOPHILS # (AUTO) 0.1 /CMM (0.0-0.2); BASOPHILS % (AUTO) 0.9 % (0.0-2.0); HEMATOCRIT 27 % (39-51); HEMOGLOBIN 8.7 g/dL (13.5-17.5); LYMPHOCYTES # (AUTO) 2.7 /CMM (0.8-4.8); LYMPHOCYTES % (AUTO) 28.8 % (20.0-44.0); MEAN CORPUSCULAR HGB CONC 33 g/dl (31.0-36.0); MEAN CORPUSCULAR VOLUME 77 fL (80-96); MONOCYTES # (AUTO) 0.5 /CMM (0.1-1.30); MONOCYTES % (AUTO) 5.6 % (2.0-12.0); NEUTROPHILS # (AUTO) 5.3 /CMM (1.8-8.9); NEUTROPHILS % (AUTO) 55.7 % (43.0-81.0); PLATELET COUNT (AUTO) 388 /CMM (150-450); RDW COEFFICIENT OF VARIATION 16.5 (11.5-15.0); RED BLOOD CELL COUNT(AUTO) 3.48 MIL/uL (4.5-6.0); WHITE BLOOD COUNT (AUTO) 9.5 K/uL (4.3-11.0)
--- NOTE | 2017-09-25 14:00 | NUR ---
MS/RN NOTE PATIENT REFUSED TO BE REPOSITIONED DESPITE EXPLAINING RISKS AND BENEFITS. CURRENTLY PATIENT IS ON LEFT LATERAL POSITION. PATIENT CLEAN AND DRY.
--- NOTE | 2017-09-25 15:04 | NUR ---
MS/RN NOTE PATIENT STILL REFUSING TO BE REPOSITIONED DESPITE EXPLAINING RISKS AND BENEFITS. PATIENT REMAINS ON LEFT LATERAL POSITION. PATIENT CLEAN AND DRY. WILL CONTINUE TO ENCOURAGE, EXPLAIN RISKS AND BENEFITS.
[2017-09-25 16:00] VITALS: BP 120/73
--- NOTE | 2017-09-25 16:30 | NUR ---
MS/RN NOTE RECEIVED NEW ORDERS FOR DISCONTINUING INDWELLING NELSON EMILY AND NEW NEW ORDER FOR IN AND OUT NELSON PRN. ALL ORDERS READ BACK, VERIFIED. NOTED AND CARRIED OUT. PATIENT AND BRICK OFF BEARER TIA MADE AWARE.
--- NOTE | 2017-09-25 16:31 | NUR ---
MS/RN NOTE NELSON CATH IS REMOVED PER ORDER. NO APPARENT COMPLICATIONS NOTED. WILL CONTINUE TO MONITOR URINARY RETENTION.
--- NOTE | 2017-09-25 16:32 | NUR ---
MS/RN FROM 0700 TO 1630 MANGO CATH DRAINED 750 ML URINE.
--- NOTE | 2017-09-25 16:38 | NUR ---
MS/RN NOTE UROLOGY APPT WITH [facility] (DR ELI) 09/26/17 AT 0945. APPT SCHEDULE DONE BY PATIENT PERSONAL ASSISTANCE TIA.
--- NOTE | 2017-09-25 18:20 | NUR ---
MS/RN PROVIDED PATIENT CARE AND NOTED DIAPER LIGHTLY WET. BLADDER SCAN DONE AND SHOWED 86ML. PATIENT ALERT AND ORIENTED X2. DENIES PAIN. NO BLADDER DISTENSION NOTED AT THIS TIME. RESPIRATION REGULAR AND UNLABORED. OXYGEN SATURATION IN ROOM AIR AT 97%. LFA G 20 PATENT AND IV FLUID INFUSING WITH NO S/S INFILTRATION. GOOD SKIN CARE RENDERED. KEPT CLEAN, DRY AND COMFORTABLE. ALL NEEDS ATTENDED AND ANTICIPATED. PATIENT IS TURNED AND REPOSITIONED. ALL NEEDS ATTENDED. BED LOW AND LOCKED. SIDE RAILS UP X3. CALL LIGHT WITHIN REACH. WILL ENDORSE TO CHANGE BOOTH ATTENDANT.
--- NOTE | 2017-09-25 19:10 | NUR ---
RN MS OPENING NOTES RECEIVED PT LYING COMFORTABLY IN BED, ALERT AND ORIENTED X 2, VERBALLY RESPONSIVE AND ABLE TO MAKE NEEDS KNOWN, NO SOB NOTED, BREATHING EVEN AND UNLABORED, AND IS IN NO ACUTE DISTRESS. PT CONTINUES TO RECEIVE IVF ORDERED, NOTED WITH NO BLADDER DISTENTION. PLACED BED IN LOW POSITION AND LOCKED IN PLACE.CALL LIGHT PLACED WITHIN EASY REACH. WILL CONTINUE TO MONITOR THROUGHOUT THE SHIFT.
[2017-09-25 19:46] VITALS: BP 145/78
[2017-09-25] MEDS: ENOXAPARIN SODIUM 40 MG/0.4 ML DISP.SYRIN SQ SCH (21:20)
--- NOTE | 2017-09-25 21:26 | NUR ---
RN NOTES BLADDER SCAN DONE AND NOTED PATIENT WITH URINE VOLUME OF 132ML. NO BLADDER DISTENTION NOTED, DIAPER CHANGED WITH GOOD AMOUNT OF URINE. WILL CONTINUE TO MONITOR.
[2017-09-26] MEDS: PIPERACILLIN /TAZOBACTAM 4.5 G in IV NS 0.9% 50 ML IV SCH ×3 (00:17→12:54)
[2017-09-26] MEDS: IV NS 0.9% 1,000 ML IV PRN (03:48)
--- NOTE | 2017-09-26 04:35 | NUR ---
RN NOTE PERFORMED BLADDER SCAN ON PT, NOTED WITH URINE VOLUME = 22ML. PATIENT NOTED WITH NO BLADDER DISTENTION, NO C/O ABDOMINAL PAIN, CONTINUES TO URINATE IN DIAPER. WILL CONTINUE TO MONITOR.
--- NOTE | 2017-09-26 06:29 | NUR ---
RN CLOSING NOTES PATIENT LYING COMFORTABLY IN BED, ASLEEP BUT EASILY AROUSABLE, NO SOB NOTED, BREATHING EVEN AND UNLABORED, IN NO ACUTE DISTRESS. ALL PATIENT'S NEEDS ATTENDED TO THROUGHOUT THE SHIFT. NO URINARY RETENTION NOTED, NO BLADDER DISTENTION. IVF INFUSING WELL, PLACED BED IN LOW POSITION AND LOCKED IN PLACE. CALL LIGHT IN EASY REACH. WILL ENDORSE TO AM SHIFT NURSE FOR CONTINUITY OF CARE.
--- NOTE | 2017-09-26 07:40 | NUR ---
MS RN OPENING NOTES RECEIVED PATIENT LYING COMFORTABLY IN BED, ALERT AND ORIENTED X 2, VERBALLY RESPONSIVE AND ABLE TO MAKE NEEDS KNOWN. NO ACUTE DISTRESS, NO SOB NOTED, BREATHING EVEN AND UNLABORED. IV SITE INTACT AND PATENT. NO BLADDER DISTENTION NOTED. PLACED BED IN LOW POSITION AND LOCKED IN PLACE.CALL LIGHT PLACED WITHIN EASY REACH. WILL CONTINUE TO MONITOR ACCORDINGLY
[2017-09-26] MEDS: HYDROCODONE/APAP 5/325MG 1 EACH TABLET PO PRN ×2 (07:41→13:24)
--- NOTE | 2017-09-26 07:42 | NUR ---
RN NOTE UPON GIVING BEDSIDE REPORT, PT WITH C/O 8/10 PAIN. PAIN MED GIVEN ORDERED.
[2017-09-26 08:00] VITALS: BP 131/74
[2017-09-26 08:21] LABS: CALCIUM, SERUM 8.4 mg/dL (8.5-10.1); CARBON DIOXIDE 27 mmol/L (21-32); CHLORIDE 101 mmol/L (98-107); CREATININE 0.7 mg/dL (0.6-1.3); GLUCOSE 90 mg/dL (74-106); POTASSIUM 3.7 mmol/L (3.5-5.1); SODIUM SERUM 135 mmol/L (136-145); UREA NITROGEN, BLOOD 8 mg/dL (7-18)
[2017-09-26] MEDS: VANCOMYCIN 1 GM in IV D5W 250 ML IV SCH (09:22)
[2017-09-26] MEDS: ACETAMINOPHEN 325 MG TABLET PO PRN (09:33)
[2017-09-26] MEDS: GABAPENTIN 300 MG CAPSULE PO SCH (09:34)
[2017-09-26] MEDS: LamoTRIgine 25 MG TABLET PO SCH (09:34)
[2017-09-26 09:35] VITALS: BP 130/76
[2017-09-26] MEDS: AMLODIPINE BESYLATE 5 MG TABLET PO SCH (09:35)
[2017-09-26] MEDS ORDERED: PIPE4.5F2 IV (11:39)
--- NOTE | 2017-09-26 15:00 | NUR ---
GENERAL SCIENCE TEACHER NOTES DISCHARGE PATIENT IN STABLE CONDITION, PICKED UP BY AMBULANCE. D/C PAPERWORK GIVEN TO advertising teacher. CALLED SIN POLLARD, REPORT GIVEN TO LENNY CALVERT, D/C INSTRUCTIONS GIVEN, VERBALIZED UNDERSTANDING. ALL BELONGINGS RETURNED. D/C IV SITE, APPLIED PRESSURE, NO BLEEDING, NO COMPLICATIONS. REMOVED NAME BAND. SKIN PHOTOS TAKEN.
== END 2017-09-26 15:00 | DRG 871 ==
LOC: ER 15:57 → TELE 17:57 → MED 09-23 10:07
PROVIDERS: ADMIT Internal Medicine; ATTEND Internal Medicine
DX: A41.9 Sepsis, unspecified organism (principal); G93.41 Metabolic encephalopathy; L89.210 Pressure ulcer of right hip, unstageable; E88.09 Other disorders of plasma-protein metabolism, not elsewhere classified; G62.9 Polyneuropathy, unspecified; I69.354 Hemiplegia and hemiparesis following cerebral infarction affecting left non-dominant side; E44.1 Mild protein-calorie malnutrition; E87.1 Hypo-osmolality and hyponatremia; E86.0 Dehydration; D47.3 Essential (hemorrhagic) thrombocythemia; S61.401A Unspecified open wound of right hand, initial encounter; N39.0 Urinary tract infection, site not specified; Z68.1 Body mass index [BMI] 19.9 or less, adult; F03.90 Unspecified dementia, unspecified severity, without behavioral disturbance, psychotic disturbance, mood disturbance, and anxiety; G40.909 Epilepsy, unspecified, not intractable, without status epilepticus; B96.5 Pseudomonas (aeruginosa) (mallei) (pseudomallei) as the cause of diseases classified elsewhere; D50.9 Iron deficiency anemia, unspecified; E78.5 Hyperlipidemia, unspecified; K21.9 Gastro-esophageal reflux disease without esophagitis; Z79.82 Long term (current) use of aspirin; Z85.841 Personal history of malignant neoplasm of brain; I10 Essential (primary) hypertension; I25.10 Atherosclerotic heart disease of native coronary artery without angina pectoris; N40.1 Benign prostatic hyperplasia with lower urinary tract symptoms; F32.9 Major depressive disorder, single episode, unspecified; G89.4 Chronic pain syndrome; D63.8 Anemia in other chronic diseases classified elsewhere; M62.838 Other muscle spasm; L98.8 Other specified disorders of the skin and subcutaneous tissue; S61.402A Unspecified open wound of left hand, initial encounter; X58.XXXA Exposure to other specified factors, initial encounter; Y93.9 Activity, unspecified; Y92.009 Unspecified place in unspecified non-institutional (private) residence as the place of occurrence of the external cause
CPT/HCPCS: 36415; 71045-TC; 80048-TC; 80053-TC; 80076-TC; 80202-TC; 81000-TC; 82962-TC; 83605-TC; 83735-TC; 84100-TC; 84484-TC; 85025-TC; 85730-TC; 87040-TC; 87081-TC; 87086-TC; 87186-TC; 92611-TC; A4216; A4606; J0696; J1650; J2543; J3370; J7030; J7060; Z7610